=== PATIENT | female | born 1945 | race Caucasian/White ===

== ENCOUNTER 2020-04-07 15:12 | Outpatient (CLI) | payer MEDICARE, OTHER, SELFPAY ==
--- NOTE | 2020-04-07 15:17 | USCV_ITS ---
Erna Murphy Age: 74 Gender: F : 1945 Exam Date: 04/07/2020 15:39 Ordering Phys: Fatmata Oliver MD Technologist: MARYA VALLEJO Exam Location: [facility] [place] Indication: OCCLUSION AND STENOSIS OF LEFT CAROTID ARTERY Risk Factors: Previous Vascular Surgery: L CEA Right Brachial BP: / Left Brachial BP: / Right Left Velocity (cm/s) Spectral Plaque Velocity (cm/s) Spectral Plaque Syst/Diast Broadening Syst/Diast Broadening 64.70/ 13.70 Prox CCA 38.80 / 7.60 69.50/ 14.60 Mid CCA 32.80 / 10.40 48.50/ 9.70 Distal CCA 22.60 / 6.40 125.90/29.60 Prox ICA 98.60 / 26.60 112.30/27.20 Mid ICA 109.20/ 28.70 82.70/ 21.00 Distal ICA 102.50/ 24.30 127.60 ECA 103.40 1.62 ICA/CCA 3.33 Antegrade Vertebral Antegrade 49.90/ 5.30 cm/s 51.80/ 20.90 cm/s Bi Subclavian Bi 82.40 75.10 CONCLUSIONS Right ICA stenosis <50% at the upper end of the range. Moderate atheromatous plaque right carotid bulb/ICA. Left ICA stenosis <50%. Mild atheromatous plaque left carotid bulb/ICA. Normal antegrade Doppler flow noted in the right vertebral artery. Normal antegrade Doppler flow noted in the left vertebral artery. Estrada Rutledge MD (Electronically Signed) Final Date: 08 April 2020 11:14 S
== END 2020-04-07 15:13 | disposition home or self-care (01) ==
LOC: US 15:14
PROVIDERS: Family Provider Family Medicine; PCP Family Medicine; Visit Provider Family Medicine
DX: I65.23 Occlusion and stenosis of bilateral carotid arteries (principal)
CPT/HCPCS: 93880

== ENCOUNTER 2020-04-27 07:36 | Outpatient (CLI) | payer MEDICARE, OTHER, SELFPAY ==
--- NOTE | 2020-04-27 07:41 | MM_ITS ---
WS: [id number] BILATERAL DIGITAL SCREENING MAMMOGRAPHY WITH CAD CLINICAL INFORMATION: SCREENING HISTORY: Screening mammogram. No current complaints. COMPARISON: TECHNIQUE: Bilateral CC and MLO views. FINDINGS: Scattered fibroglandular densities bilaterally. No suspicious focal mass, asymmetry, calcifications, or architectural distortion. No evidence of malignancy. A few tiny punctate calcifications. MM/[place] [id number] IMPRESSION: BI-RADS: 2-Benign FOLLOW UP: 1 Year Follow-up Recommend return to annual screening mammography.
== END 2020-04-27 07:37 | disposition home or self-care (01) ==
LOC: RADSHAW 07:39
PROVIDERS: PCP Family Medicine; Visit Provider Family Medicine
DX: Z12.31 Encounter for screening mammogram for malignant neoplasm of breast (principal)
CPT/HCPCS: 77067

== ENCOUNTER 2020-09-30 08:32 | Outpatient (CLI) | payer MEDICARE, OTHER, SELFPAY ==
--- NOTE | 2020-09-30 08:38 | USCV_ITS ---
Erna Murphy Age: 75 Gender: F : 1945 Exam Date: 09/30/2020 08:43 Ordering Phys: Jorge Cody MD (Andy) ([email or web address] [place]) Technologist: Sheri Solitario Exam Location: [facility] [place] Indication: STENOSIS Risk Factors: Previous Vascular Surgery: Right Brachial BP: / Left Brachial BP: / Right Left Velocity (cm/s) Spectral Plaque Velocity (cm/s) Spectral Plaque Syst/Diast Broadening Syst/Diast Broadening 55.20/ 5.90 Prox CCA 47.10 / 6.40 44.70/ 9.90 Mid CCA 35.30 / 7.50 63.30/ 16.70 Distal CCA 38.40 / 9.00 98.75/ 25.10 Prox ICA 122.40/ 34.20 79.00/ 18.30 Mid ICA 101.70/ 27.50 87.70/ 20.20 Distal ICA 91.50 / 18.50 80.80 ECA 32.50 2.24 ICA/CCA 3.47 Antegrade Vertebral Antegrade 32.60/ 6.70 cm/s 59.50/ 17.60 cm/s Tri Subclavian Tri 87.90 124.6 0 FINDINGS Comparison:. 04/07/20. Mild elevation of systolic and diastolic velocities, bilateral. Scattered plaque with tortuosity of the arteries. Bilateral antegrade vertebral arteries. Ratios are elevated but ICA velocity is near normal. CONCLUSIONS Bilateral ICA stenosis near 50%. ICA/CCA ratios are elevated but systolic velocity is near normal. Dr. Astrid De León DO (Electronically Signed) Final Date: 01 October 2020 07:59 S
== END 2020-09-30 08:33 | disposition home or self-care (01) ==
LOC: RAD 08:36
PROVIDERS: PCP Family Medicine; Visit Provider Thoracic Surgery (Cardiothoracic Vascular Surgery)
DX: I65.23 Occlusion and stenosis of bilateral carotid arteries (principal)
CPT/HCPCS: 93880

== ENCOUNTER 2020-10-09 14:17 | Outpatient (CLI) | payer MEDICARE, OTHER, SELFPAY ==
--- NOTE | 2020-10-09 14:26 | XR_ITS ---
WS: [id number] DEXA (DUAL ENERGY X-RAY ABSORPTIOMETRY) Bone mineral density was performed using a BUX machine. HISTORY: AGE-RELATED OSTEOPOROSIS without CURRENT PATHOLOGICAL FRACTURE COMPARISON: 01/12/2018 Lumbar spine BMD (L1-L4): 0.864 g/cm2 T score: -2.6 Z score: -0.7 Total hip BMD: Left: 0.621 g/cm2. T score: -3.1 Z score: -1.2 Right: 0.641 g/cm2. T score: -2.9 Z score: -1.0 10 year probability of a major osteoporotic fracture is 37%. Compared to the prior study from 01/12/2018. Lumbar spine bone mineral density has increased by 0.2%. Bilateral hips bone mineral density has decreased by 2.6%. XR/XR DEXA axial skeleton* [id number] IMPRESSION: OSTEOPOROSIS based upon the WHO classification for females. Significant decreas e in bone mineral density within the hips since the prior study. No significant change in the lumbar spine.
== END 2020-10-09 14:18 | disposition home or self-care (01) ==
LOC: RADWPI 14:21
PROVIDERS: PCP Family Medicine; Visit Provider Family Medicine
DX: M81.0 Age-related osteoporosis without current pathological fracture (principal)
CPT/HCPCS: 77080

== ENCOUNTER → 2020-10-19 12:27 | Day surgery (SDC) | payer MEDICARE, OTHER, SELFPAY ==
[2020-10-19 13:04] VITALS: BP 140/81; PULSE 78; RESP 18; TEMP 36.4; O2SAT 96
[2020-10-19 13:14] LABS: Calcium 8.9 mg/dL (8.5-10.5)
[2020-10-19] MEDS: denosumab 60 mg SDV SUBCUT (13:15)
== END ==
PROVIDERS: PCP Family Medicine; Visit Provider Family Medicine
DX: M81.0 Age-related osteoporosis without current pathological fracture (principal)
CPT/HCPCS: 36415; 82310; 96372; J0897

== ENCOUNTER → 2021-04-12 10:41 | Day surgery (SDC) | payer MEDICARE, OTHER, SELFPAY ==
[2021-04-12 11:17] VITALS: BP 200/100; PULSE 80; RESP 18; TEMP 36.6; O2SAT 97
[2021-04-12 11:43] LABS: Calcium 9.1 mg/dL (8.5-10.5)
[2021-04-12] MEDS: denosumab 60 mg SDV SUBCUT (11:45)
== END ==
PROVIDERS: PCP Family Medicine; Visit Provider Family Medicine
DX: M81.0 Age-related osteoporosis without current pathological fracture (principal)
CPT/HCPCS: 36415; 82310; 96372; J0897

== ENCOUNTER 2021-04-30 12:36 | Outpatient (CLI) | payer MEDICARE, OTHER, SELFPAY ==
--- NOTE | 2021-04-30 12:45 | USCV_ITS ---
Erna Murphy Age: 75 Gender: F : 1945 Exam Date: 04/30/2021 13:19 Ordering Phys: Jorge Cody MD (Andy) ([email or web address] [place] Technologist: Nallely Tanner [place]am Location[place] [facility] [place] Indication: LCA RECHECK Risk Factors: History of CVA Previous Vascular Surgery: LCEA Right Brachial BP: / Left Brachial BP: / Right Left Velocity (cm/s) Spectral Plaque Velocity (cm/s) Spectral Plaque Syst/Diast Broadening Syst/Diast Broadening 66.40/ 18.50 Prox CCA 30.70 / 7.10 44.50/ 15.10 Hetro Mid CCA 27.80 / 7.90 49.20/ 11.60 Hetro Distal CCA 15.80 / 8.50 Hetro 111.00/22.90 Hetro Prox ICA 82.70 / 22.20 117.10/26.60 Hetro Mid ICA 74.10 / 12.40 87.80/ 14.90 Distal ICA 49.90 / 9.90 101.20 Hetro ECA 78.15 2.63 ICA/CCA 2.98 Antegrade Vertebral Antegrade 55.50/ 11.00 cm/s 26.70/ 11.60 cm/s Bi Subclavian Bi 62.00 108.0 0 FINDINGS Comparison:. 09/30/20 Continued elevation of ratios, bilateral. The systolic and diastolic velocities are not elevated. Mild tortuosity and plaque throughout. Antegrade vertebral arteries. CONCLUSIONS Continued elevation of ratios but not velocity of the carotid arteries. Bilateral ICA stenosis less than 50%. No progression stenosis or plaque. Consider CTA carotids to confirm no significant stenosis. Dr. Astrid De León DO (Electronically Signed) Final Date: 30 April 2021 14:11 S
== END 2021-04-30 12:37 | disposition home or self-care (01) ==
LOC: RAD 12:39
PROVIDERS: PCP Family Medicine; Visit Provider Thoracic Surgery (Cardiothoracic Vascular Surgery)
DX: I65.23 Occlusion and stenosis of bilateral carotid arteries (principal)
CPT/HCPCS: 93880

== ENCOUNTER → 2021-07-05 09:32 | Outpatient (BNVA) | payer MEDICARE, OTHER, SELFPAY | PROVIDERS: PCP Family Medicine; Visit Provider Surgery | DX: Z20.822 Contact with and (suspected) exposure to COVID-19 (principal); R19.4 Change in bowel habit | CPT/HCPCS: 87635 ==

== ENCOUNTER 2021-07-12 06:05 | Day surgery (SDC) | payer MEDICARE, OTHER, SELFPAY ==
[2021-07-07 14:43] VITALS: BMI 22.1
[2021-07-12 06:20] VITALS: BP 154/84; PULSE 89; RESP 18; TEMP 36.6; O2SAT 97
[2021-07-12] MEDS: sodium chloride 0.9% 1,000 ML 30 ML IV (06:45)
--- NOTE | 2021-07-12 06:52 | ANES.PREANE2 ---
Pre-Anesthetic Assessment Pre-Anesthetic Assessment: Height/Weight: Height 1.6 m Weight 56.699 kg Temp Pulse Resp BP Pulse Ox 97.8 F 89 18 154/84 97 07/12/21 06:20 07/12/21 06:20 07/12/21 06:20 07/12/21 06:20 07/12/21 06:20 Preop Diagnosis: screening colonoscopy Proposed Procedure: Operation Date: 07/12/21 07:00 Proposed Procedures p Colonoscopy 54502 r19.4(Not Applicable) - Isrrael Valverde MD Was Clonidine taken within 24 hours: N/A Last intake: Intake Last Liquid Date 07/11/21 Last Liquid Time 22:00 Last Solid Date 07/10/21 Last Solid Time 22:00 Social: Social History: No alcohol and No tobacco Exam: Pre-Anes Outpt Exam: alert, oriented x 3, clear to auscultation bilaterally and regular rate & rhythm Airway: Submandibular: WNL Cervical ROM: WNL MP: 2 Dentition: False History/ROS: No significant history except as noted and No significant complaints Pulmonary: Pulmonary: None reported CV/HEM: CV/HEM: PVD : : Chronic renal Insufficiency Hepatic: Hepatic: None reported GI: GI: None reported Metabolic: Metabolic: None reported Musc/skel: Musc/skel: OA/DJD Neuropsych: Neuropsych: CVA (Right side weaker than left) Anesthetic Plan: ASA status: 3 Anesthesia: Anesthesia Evaluation and MAC Risk of > 500 ml blood loss (7ml/kg in children): No Meds/Allergies Current Medications: Current Medications Generic Name Dose Route Start Last Admin Trade Name Freq PRN Reason Stop Dose Admin Sodium Chloride 1,000 mls @ 30 ml s/hr 07/12/21 06:15 07/12/21 06:45 Sodium Chloride 0.9% IV 07/13/21 06:14 30 mls/hr .Q24H DIONY Administration PFSH Anesthesia PFSH: Medical History Acute hypotension Age related osteoporosis Anemia Bronchiolitis Carotid stenosis Chronic kidney disease CVA (cerebral vascular accident) Hypertension Hypertriglyceridemia Surgical History Hx of cataract surgery S/P carotid endarterectomy Status post right breast lumpectomy Family History Other Hypertension Social History Smoking and tobacco status: former smoker Data Anesthesia Cardiac Studies: No Data to Display
--- NOTE | 2021-07-12 06:55 | W.PM.OPSUD ---
Surgery/Procedure H&P Update DATE OF PROCEDURE: July 12, 2021 DATE H&P PERFORMED: 06/15/21 H&P UPDATE INFORMATION: I have reviewed H&P completed within last 30 days, I have examined patient prior to procedure and No changes to prior documentation PREOP DIAGNOSIS: screening colonoscopy PLANNED PROCEDURE: Operation Date: 07/12/21 07:00 Proposed Procedures p Colonoscopy 82917 r19.4(Not Applicable) - Isrrael Valverde MD
[2021-07-12 07:22] VITALS: BP 120/58; PULSE 62; RESP 16; TEMP 36.4; O2SAT 93
[2021-07-12 07:29] VITALS: BP 154/96; PULSE 63; RESP 18; O2SAT 96
--- NOTE | 2021-07-12 15:54 | ANE.PACU2 ---
Inpatient post-anesthesia follow up: Airway intact: Yes Vital signs: Temperature 97.5 F Pulse Rate 63 Respiratory Rate 18 Blood Pressure 154/96 Pulse Oximetry 96 Oxygen Delivery Me thod Room Air Oxygen Flow Rate 4 Fraction of Inspir ed Oxygen Hydration adequate: Yes Nausea and vomiting: No Pain level: 1 Mental status: Baseline
== END 2021-07-12 07:42 | disposition home or self-care (01) ==
PROVIDERS: PCP Family Medicine; Visit Provider Surgery
PROC: 0DJD8ZZ Inspection of Lower Intestinal Tract, Via Natural or Artificial Opening Endoscopic (ICD-10-PCS; CPT 45378; principal; 2021-07-12 07:00)
DX: R19.4 Change in bowel habit (principal); K57.30 Diverticulosis of large intestine without perforation or abscess without bleeding; D12.4 Benign neoplasm of descending colon; M19.90 Unspecified osteoarthritis, unspecified site; Z86.73 Personal history of transient ischemic attack (TIA), and cerebral infarction without residual deficits; I10 Essential (primary) hypertension; Z87.891 Personal history of nicotine dependence
CPT/HCPCS: 45380; 88305; 96360; J2704; J7030

== ENCOUNTER → 2021-10-13 11:14 | Day surgery (SDC) | payer MEDICARE, OTHER, SELFPAY ==
[2021-10-13 11:28] VITALS: BP 187/93; PULSE 86; RESP 18; TEMP 35.9; O2SAT 97
[2021-10-13] MEDS: denosumab 60 mg SDV SUBCUT (11:36)
== END ==
PROVIDERS: PCP Family Medicine; Visit Provider Family Medicine
DX: M81.0 Age-related osteoporosis without current pathological fracture (principal)
CPT/HCPCS: 96372; J0897

== ENCOUNTER → 2022-04-12 10:29 | Day surgery (SDC) | payer MEDICARE, OTHER, SELFPAY ==
[2022-04-12 10:30] VITALS: BP 153/116; PULSE 71; RESP 18; TEMP 36.7; O2SAT 97
--- NOTE | 2022-04-12 10:30 | PC.NURSE ---
Pt brought lab from Dr. Oliver's office. Calcium level noted at 9.0 on 03/18/22. Prolia injection given as ordered.
[2022-04-12] MEDS: denosumab 60 mg SDV SUBCUT (10:42)
== END ==
PROVIDERS: PCP Family Medicine; Visit Provider Family Medicine
DX: M81.0 Age-related osteoporosis without current pathological fracture (principal)
CPT/HCPCS: 96372; J0897

== ENCOUNTER 2022-06-20 11:46 | Outpatient (CLI) | payer MEDICARE, OTHER, SELFPAY ==
--- NOTE | 2022-06-20 13:00 | USCV_ITS ---
Erna Murphy Age: 76 Gender: F : 1945 Exam Date: 06/20/2022 12:07 Ordering Phys: Jorge Cody MD (Andy) [email or web address] [place] Technologist: HARI Exam Location: [facility] [place] Indication: S/P LEFT CEA 2017, 1 YEAR F/U Risk Factors: Previous Vascular Surgery: Right Brachial BP: / Left Brachial BP: / Right Left Velocity (cm/s) Spectral Plaque Velocity (cm/s) Spectral Plaque Syst/Diast Broadening Syst/Diast Broadening 55.20/ 11.70 Prox CCA 38.50 / 8.50 54.40/ 13.20 Mid CCA 48.70 / 11.10 38.80/ 9.20 Distal CCA 40.20 / 13.70 108.80/24.90 Prox ICA 23.20 / 9.70 90.80/ 14.80 Mid ICA 68.40 / 17.10 58.50/ 7.30 Distal ICA 46.80 / 12.30 128.10 ECA 92.60 1.97 ICA/CCA 1.40 Antegrade Vertebral Antegrade 52.10/ 11.10 cm/s 56.30/ 13.80 cm/s Tri Subclavian Tri 84.30 42.00 FINDINGS Comparison:. 04/30/21 Diffuse bilateral scattered calcified plaque throughout the common carotid arteries and extending through the bifurcation. Parvus tardus waveform left CCA. Velocity of left common carotid artery is low. No high grade stenosis. Antegrade vertebral arteries. CONCLUSIONS Bilateral ICA stenosis less than 50%. Left common carotid parvus tardus waveform, may indicate a proximal stenosis at the origin from the aorta. Consider CTA carotid arteries. Dr. Astrid De León DO (Electronically Signed) Final Date: 20 June 2022 14:48 S
== END 2022-06-20 11:47 | disposition home or self-care (01) ==
PROVIDERS: PCP Family Medicine; Visit Provider Thoracic Surgery (Cardiothoracic Vascular Surgery)
DX: I65.23 Occlusion and stenosis of bilateral carotid arteries (principal)
CPT/HCPCS: 93880

== ENCOUNTER → 2022-07-07 08:47 | Outpatient (BNVA) | payer MEDICARE, OTHER, SELFPAY | PROVIDERS: PCP Family Medicine; Visit Provider Thoracic Surgery (Cardiothoracic Vascular Surgery) | DX: I65.29 Occlusion and stenosis of unspecified carotid artery (principal) | CPT/HCPCS: 99212 ==

== ENCOUNTER → 2022-10-13 09:43 | Day surgery (SDC) | payer MEDICARE, OTHER, SELFPAY ==
[2022-10-13 10:18] VITALS: BP 200/100; PULSE 83; RESP 18; TEMP 36.2; O2SAT 95
[2022-10-13] MEDS: denosumab 60 mg SDV SUBCUT (10:35)
== END ==
PROVIDERS: PCP Family Medicine; Visit Provider Family Medicine
DX: M81.0 Age-related osteoporosis without current pathological fracture (principal)
CPT/HCPCS: 36415; 82310; 96372; J0897

== ENCOUNTER 2022-11-08 12:21 | Outpatient (CLI) | payer MEDICARE, OTHER, SELFPAY ==
--- NOTE | 2022-11-08 12:31 | XR_ITS ---
WS: [id number] DEXA (DUAL ENERGY X-RAY ABSORPTIOMETRY) Bone mineral density was performed using a [employer] machine. HISTORY: AGE RELATED OSTEOPOROSIS W/O PATHOLOGICAL FX COMPARISON: 10/09/2020 Lumbar spine BMD (L1-L4): 0.919 g/cm2 T score: -2.2 Z score: -0.2 Total hip BMD: Left: 0.679 g/cm2. T score: -2.6 Z score: -0.6 Right: 0.695 g/cm2. T score: -2.5 Z score: -0.5 10 year probability of a major osteoporotic fracture is 41.6%. Compared to the prior study from 10/09/2020. Lumbar spine bone mineral density has increased by 6.4%. Bilateral hips bone mineral density has increased by 8.9%. XR/XR DEXA axial skeleton* [id number] IMPRESSION: OSTEOPENIA based upon the WHO classification for females. Significant increase in bone mineral density within the lumbar spine and hips s ida the prior study.
== END 2022-11-08 12:22 | disposition home or self-care (01) ==
LOC: RAD 12:21
PROVIDERS: PCP Family Medicine; Visit Provider Family Medicine
DX: M81.0 Age-related osteoporosis without current pathological fracture (principal); M85.80 Other specified disorders of bone density and structure, unspecified site
CPT/HCPCS: 77080

== ENCOUNTER 2022-12-13 11:39 | Outpatient (CLI) | payer MEDICARE, OTHER, SELFPAY ==
--- NOTE | 2022-12-13 11:52 | US_ITS ---
WS: [id number] RENAL ULTRASOUND REASON FOR EXAM: STAGE 3B CHRONIC KIDNEY DZ COMPARISON: None available. ORDER DATE: 12/13/2022 11:54 AM TECHNIQUE: Grayscale and Doppler ultrasound examination of the kidneys. FINDINGS: Right kidney: Right kidney measures 11.0 cm x 5.1 cm x 5.4 cm. Cortical width 19 mm Left kidney: Left kidney measures 8.4 cm x 4.7 cm x 4.8 cm. Cortical width 7.5 mm with a very echoge demetrio renal cortex Duplex imaging demonstrates reduced vascular flow in the left kidney compared with the right No evidence of hydronephrosis Partially distended urinary bladder unremarkable. US/US renal BI* [id number] IMPRESSION: Marked left renal atrophy with increased echogenicity consistent with chronic p arenchymal changes.
== END 2022-12-13 11:40 | disposition home or self-care (01) ==
LOC: RAD 11:42
PROVIDERS: PCP Family Medicine; Visit Provider Internal Medicine Nephrology
DX: N18.32 Chronic kidney disease, stage 3b (principal); N26.1 Atrophy of kidney (terminal)
CPT/HCPCS: 76770

== ENCOUNTER 2023-02-10 02:14 | Emergency (ER) | payer MEDICARE, OTHER, SELFPAY ==
[2023-02-10 02:25] VITALS: BP 184/93; PULSE 77; RESP 22; O2SAT 93; BMI 24.5
--- NOTE | 2023-02-10 02:29 | XRR_ITS ---
PROCEDURE INFORMATION: Exam: XR Chest Exam date and time: 02/10/2023 2:33 AM Age: 77 years old Clinical indication: Prior surgery; Surgery date: 6+ months; Surgery type: Lumpectomy. Carotid endarterectomy; Patient HX: C/O cough x 3 days TECHNIQUE: Imaging protocol: Radiologic exam of the chest. Views: 1 view. COMPARISON: CR XR chest 1V [id number] 08/29/2019 9:22 PM FINDINGS: Lungs: There are low lung volumes. Otherwise, the lungs are clear. Pleural spaces: Unremarkable. No pleural effusion. No pneumothorax. Heart/Mediastinum: Calcified lymph nodes are present, secondary to prior granulomatous disease. Bones/joints: Unremarkable. XR/XR chest 1V portable [id number] IMPRESSION: There are low lung volumes. Otherwise, the lungs are clear.
--- NOTE | 2023-02-10 02:32 | W.ED.URI ---
HPI - URI/Sore Throat General: Chief Complaint: Upper Respiratory Infection Stated Complaint: n/v, cough x 3 days Time Seen by Provider: 02/10/23 02:16 Source: patient Mode of arrival: ambulatory Limitations: no limitations History of Present Illness: 69-year-old female states she has had a cough for the last 5 days. States she has had some congestion as well. States the cough is worsening states she is coughed so hard a couple times she has vomited she denies any nausea denies any chest pain she has felt feverish but has not taken her temp at home. She denies any worsening proving factors she is in no distress here. Associated symptoms: Reports vomiting; Deny abdominal pain, chills, chest pain, diarrhea, fever(s), headache(s) or nausea Review of Systems Const: Reports: body aches; Denies: fever(s) or chills Eyes: Denies: eye discomfort ENMT: Denies: throat pain or dental pain Card: Denies: chest pain Resp: Reports: productive cough; Denies: dyspnea GI: Reports: vomiting; Denies: abdominal pain, nausea or diarrhea : Denies: dysuria Musc: Denies: neck pain or back pain Skin/Breast: Denies: rash Neuro: Denies: headache(s) PFSH ED PFSH: Medical History Acute hypotension Age related osteoporosis Anemia Bronchiolitis Carotid stenosis Chronic kidney disease CVA (cerebral vascular accident) Hypertension Hypertriglyceridemia Surgical History Hx of cataract surgery S/P carotid endarterectomy Status post colonoscopy (07/12/21) Status post right breast lumpectomy Family History Other Hypertension Social History Smoking and tobacco status: former smoker Physical Exam Const: COMMON NORMALS: no acute distress, patient oriented x3 and healthy appearing HENMT: COMMON NORMALS: normocephalic and atraumatic HEAD & SCALP: normocephalic and atraumatic THROAT: posterior oropharynx normal Eye: COMMON NORMALS: conjunctivae normal CONJUNCTIVA: Yes conjunctivae normal Neck/C-Spine: COMMON NORMALS: full ROM and supple Chest: COMMONS NORMALS: normal inspection of the chest and normal palpation of entire chest wall Resp: COMMON NORMALS: normal respiratory effort, No retractions, No use of accessory muscles and clear to auscultation bilaterally AUSCULTATION: clear to auscultation bilaterally Cardio: COMMON NORMALS: regular rate, regular rhythm and No murmurs present (Cardio) RATE: regular rate RHYTHM: regular rhythm GI: COMMON NORMALS: Normal to inspection, nondistended, normoactive bowel sounds present, Soft to palpation, non-tender and no masses PALPATION: Yes Soft to palpation Extremity: COMMON NORMALS: normal to inspection and full ROM Neuro: COMMON NORMALS: patient oriented x3, moves all extremities and no focal motor deficits Psych: COMMON NORMALS: mental status grossly normal, Normal thought process present and cooperative THOUGHT PROCESS: Normal thought process present Skin: COMMON NORMALS: no rashes or lesions noted and no wounds GENERAL SKIN EXAM: no rashes or lesions noted Course Vital Signs: Vital signs: Vital Signs Temperature 98.0 F 02/10/23 03:24 Pulse Rate 78 02/10/23 03:24 Respiratory Rate 16 02/10/23 03:24 Blood Pressure 184/93 02/10/23 03:24 Pulse Oximetry 93 02/10/23 03:24 Oxygen Delivery Me thod Room Air 02/10/23 02:25 MDM - URI/Sore Throat Medical Decision Making Patient presents here with cough congestion x-ray shows a possible left lower lobe pneumonia she has had green productive sputum patient is stable for discharge we will start her on doxycycline she is stable for discharge she is to follow-up with PCP and return if worsening. Medical Records I reviewed the patient's medical records. Lab Data I reviewed the patient's lab results. 02/10/23 02:48 02/10/23 02:48 Laboratory Results WBC 14.3 10^3/uL (4.0-10.0) H 02/10/23 02:48 RBC 4.64 10^6/uL (4.1-5.3) 02/10/23 02:48 Hgb 13.6 g/dL (11.5-15.3) 02/10/23 02:48 Hct 42.5 % (37.0-47.0) 02/10/23 02:48 MCV 91.6 fl (81-99) 02/10/23 02:48 MCH 29.3 pg (28.0-34.0) 02/10/23 02:48 MCHC 32.0 g/dL (30.0-36.0) 02/10/23 02:48 RDW 13.0 % (12.1-15.1) 02/10/23 02:48 Plt Count 334 10^3/cmm (130-400) 02/10/23 02:48 MPV 9.8 fL (7.4-10.4) 02/10/23 02:48 Neut % (Auto) 77.5 % 02/10/23 02:48 Lymph % (Auto) 10.0 % 02/10/23 02:48 Huron % (Auto) 10.4 % 02/10/23 02:48 Eos % (Auto) 1.2 % 02/10/23 02:48 Baso % (Auto) 0.3 % 02/10/23 02:48 Neut # (Auto) 11.11 10^3/uL (1.8-7.7) H 02/10/23 02:48 Lymph # (Auto) 1.4 10^3/uL (0.8-4.8) 02/10/23 02:48 Huron # (Auto) 1.5 10^3/uL (0.2-0.9) H 02/10/23 02:48 Eos # (Auto) 0.2 10^3/uL (0.0-0.8) 02/10/23 02:48 Baso # (Auto) 0.1 10^3/uL (0.0-0.1) 02/10/23 02:48 Nucleated RBC % (auto) 0 % 02/10/23 02:48 Nucleated RBCs # 0.0 /100WBC 02/10/23 02:48 Sodium 137 mmol/L (136-145) 02/10/23 02:48 Potassium 3.9 mmol/L (3.5-5.1) 02/10/23 02:48 Chloride 101 mmol/L (98-107) 02/10/23 02:48 Carbon Dioxide 22 mmol/L (22-29) 02/10/23 02:48 Anion Gap 17.9 (5-19) 02/10/23 02:48 BUN 19 mg/dL (8-23) 02/10/23 02:48 Creatinine 1.7 mg/dL (0.5-0.9) H 02/10/23 02:48 GFR Calculation Not Reportable 02/10/23 02:48 Glucose 123 mg/dL (65-115) H 02/10/23 02:48 Calculated Osmolality 288 mOsm/kg (285-295) 02/10/23 02:48 Calcium 9.2 mg/dL (8.5-10.5) 02/10/23 02:48 Total Bilirubin 0.4 mg/dL (0.15-1.2) 02/10/23 02:48 AST 14 U/L (0-32) 02/10/23 02:48 ALT 9 U/L (0-33) 02/10/23 02:48 Alkaline Phosphatase 61 U/L (35-105) 02/10/23 02:48 Total Protein 7.8 g/dL (6.6-8.7) 02/10/23 02:48 Albumin 4.2 g/dL (3.5-5.2) 02/10/23 02:48 Globulin 3.6 g/dL (1.3-4.6) 02/10/23 02:48 SARS-CoV-2 Ag (Rapid) negative 02/10/23 02:58 Imaging Data CXR: I personally reviewed and interpreted this imaging study as follows: My impression: likely LLL pneumonia Discharge Plan Discharge Patient Disposition: Home Clinical Impression: Pneumonia Condition: Stable Prescriptions: New doxycycline hyclate 100 mg tablet 100 mg PO BID 7 Days Qty: 14 0RF No Action zolpidem [Ambien] 5 mg tablet 5 mg PO PRN PRN (Reason: Sleep) aspirin 325 mg tablet 325 mg PO DAILY simvastatin 40 mg tablet 40 mg PO DAILY amlodipine 5 mg tablet 5 mg PO DAILY Prolia 60 mg/mL Syringe See Rx Instructions .ROUTE .COMPLEX Rx Instructions: 60 mg subcutaneously every 6 months Discharge Orders: Discharge ED (Routine); Ordered 02/10/23 Ordered By: Sabas Roberts Referrals: Fatmata Oliver MD [Primary Care Provider] - 1-3 days Discharge Diet: Advance as tolerated Discharge Activity: Resume usual activity Patient Instructions: Pneumonia (ED) Coding Level of Care Code ED [employer] Captain for Chg Dereje
[2023-02-10 02:56] LABS: Basophils # 0.1 10^3/uL (0.0-0.1); Basophils % 0.3 %; Eosinophils # 0.2 10^3/uL (0.0-0.8); Eosinophils % 1.2 %; Hematocrit 42.5 % (37.0-47.0); Hemoglobin 13.6 g/dL (11.5-15.3); Lymphocytes # 1.4 10^3/uL (0.8-4.8); Mean Corpuscular Hemoglobin 29.3 pg (28.0-34.0); Mean Corpuscular Volume 91.6 fl (81-99); Mean Platelet Volume 9.8 fL (7.4-10.4); Monocytes # 1.5 10^3/uL (0.2-0.9); Monocytes % 10.4 %; Neutrophils # 11.11 10^3/uL (1.8-7.7); Neutrophils % 77.5 %; Nucleated Red Blood Cells % 0 %; Platelet Count 334 10^3/cmm (130-400); Red Blood Count 4.64 10^6/uL (4.1-5.3); White Blood Count 14.3 10^3/uL (4.0-10.0)
[2023-02-10 03:09] LABS: Alanine Aminotransferase 9 U/L (0-33); Albumin Level 4.2 g/dL (3.5-5.2); Alkaline Phosphatase 61 U/L (35-105); Anion Gap 17.9 (5-19); Aspartate Amino Transferase 14 U/L (0-32); Blood Urea Nitrogen 19 mg/dL (8-23); Calcium 9.2 mg/dL (8.5-10.5); Carbon Dioxide 22 mmol/L (22-29); Chloride 101 mmol/L (98-107); Globulin 3.6 g/dL (1.3-4.6); Glucose 123 mg/dL (65-115); Osmolality Calculated 288 mOsm/kg (285-295); Potassium 3.9 mmol/L (3.5-5.1); Sodium 137 mmol/L (136-145); Total Bilirubin 0.4 mg/dL (0.15-1.2); Total Protein 7.8 g/dL (6.6-8.7)
[2023-02-10 03:20] LABS: SARS Covid-2 Antigen negative
[2023-02-10 03:24] VITALS: BP 184/93; PULSE 78; RESP 16; TEMP 36.7; O2SAT 93
[2023-02-10 03:34] VITALS: BP 184/93; PULSE 77; RESP 16; O2SAT 95
[2023-02-10] MEDS: doxycycline 100 mg Tablet PO (03:36)
[2023-02-10 03:41] VITALS: BP 184/93; PULSE 77; RESP 16; TEMP 36.7; O2SAT 95
== END 2023-02-10 03:42 | disposition home or self-care (01) ==
PROVIDERS: Emergency Provider Emergency Medicine; PCP Family Medicine
DX: J18.9 Pneumonia, unspecified organism (principal); Z79.82 Long term (current) use of aspirin; Z20.822 Contact with and (suspected) exposure to COVID-19; Z87.891 Personal history of nicotine dependence; I12.9 Hypertensive chronic kidney disease with stage 1 through stage 4 chronic kidney disease, or unspecified chronic kidney disease; N18.9 Chronic kidney disease, unspecified; Z86.73 Personal history of transient ischemic attack (TIA), and cerebral infarction without residual deficits
CPT/HCPCS: 71045; 80053; 85025; 87426; 99284

== ENCOUNTER → 2023-03-21 08:43 | Outpatient (BNVA) | payer MEDICARE, OTHER, SELFPAY | PROVIDERS: PCP Family Medicine; Visit Provider Podiatrist Foot & Ankle Surgery | DX: I73.9 Peripheral vascular disease, unspecified (principal); L60.3 Nail dystrophy; Q82.8 Other specified congenital malformations of skin | CPT/HCPCS: 11721; 17110; 99204 ==

== ENCOUNTER → 2023-05-23 08:22 | Outpatient (BNVA) | payer MEDICARE, OTHER, SELFPAY | PROVIDERS: PCP Family Medicine; Visit Provider Podiatrist Foot & Ankle Surgery | DX: L60.3 Nail dystrophy (principal); I73.9 Peripheral vascular disease, unspecified; Q82.8 Other specified congenital malformations of skin | CPT/HCPCS: 11721; 17110 ==

== ENCOUNTER 2023-05-25 14:29 | Oncology outpatient (recurring) (ONCR) | payer MEDICARE, OTHER, SELFPAY ==
[2023-05-25 15:07] VITALS: BP 156/86; PULSE 81; RESP 18; TEMP 36.4; O2SAT 97
[2023-05-25 15:12] VITALS: BP 114/74; PULSE 78; RESP 18; TEMP 36.6; O2SAT 98
[2023-05-25] MEDS: denosumab 60 mg SDV SUBCUT (15:12)
== END 2023-05-25 23:59 | disposition home or self-care (01) ==
LOC: ONCMED 14:31
PROVIDERS: PCP Family Medicine; Visit Provider Family Medicine
DX: M81.0 Age-related osteoporosis without current pathological fracture (principal)
CPT/HCPCS: 96401; J0897

== ENCOUNTER 2023-06-30 11:34 | Outpatient (CLI) | payer MEDICARE, OTHER, SELFPAY ==
--- NOTE | 2023-06-30 12:00 | USCV_ITS ---
Erna Murphy Age: 77 Gender: F : 1945 Exam Date: 06/30/2023 11:45 Ordering Phys: Jorge Cody MD (Andy) ([email or web address] [place]) Technologist: CT Exam Location: [facility] [place] Indication: Risk Factors: Previous Vascular Surgery: Right Brachial BP: / Left Brachial BP: / Right Left Velocity (cm/s) Spectral Plaque Velocity (cm/s) Spectral Plaque Syst/Diast Broadening Syst/Diast Broadening 38.80/ 6.70 Prox CCA 38.00 / 9.70 58.50/ 12.50 Mid CCA 57.90 / 9.70 47.30/ 11.20 Distal CCA 45.10 / 11.30 109.90/24.70 Prox ICA 69.90 / 15.20 86.70/ 15.80 Mid ICA 53.40 / 15.20 62.30/ 10.80 Distal ICA 48.90 / 17.10 112.30 ECA 56.40 1.88 ICA/CCA 1.21 Antegrade Vertebral Antegrade 52.00/ 9.30 cm/s 58.70/ 13.20 cm/s Bi Subclavian Bi 143.6 102.5 0 0 FINDINGS previous left cea, no stenosis CONCLUSIONS Right ICA stenosis <50%. Severe calcified atheromatous plaque right carotid bulb/ICA/ECA Left ICA stenosis <50%. Prior Left CEA. Intimal thickening in the common carotid arteries and internal carotid arteries bilaterally. Normal antegrade Doppler flow noted in the right vertebral artery. Normal antegrade Doppler flow noted in the left vertebral artery. Estrada Rutledge MD (Electronically Signed) Final Date: 02 July 2023 12:54 S
== END 2023-06-30 11:35 | disposition home or self-care (01) ==
PROVIDERS: PCP Family Medicine; Visit Provider Thoracic Surgery (Cardiothoracic Vascular Surgery)
DX: I65.23 Occlusion and stenosis of bilateral carotid arteries (principal)
CPT/HCPCS: 93880

== ENCOUNTER → 2023-07-13 08:36 | Outpatient (BNVA) | payer MEDICARE, OTHER, SELFPAY | PROVIDERS: PCP Family Medicine; Visit Provider Thoracic Surgery (Cardiothoracic Vascular Surgery) | DX: I65.29 Occlusion and stenosis of unspecified carotid artery (principal); I12.9 Hypertensive chronic kidney disease with stage 1 through stage 4 chronic kidney disease, or unspecified chronic kidney disease; N18.9 Chronic kidney disease, unspecified; Z87.891 Personal history of nicotine dependence | CPT/HCPCS: 99213 ==

== ENCOUNTER → 2023-08-29 08:12 | Outpatient (BNVA) | payer MEDICARE, OTHER, SELFPAY | PROVIDERS: PCP Family Medicine; Visit Provider Podiatrist Foot & Ankle Surgery | DX: L60.3 Nail dystrophy (principal); I73.9 Peripheral vascular disease, unspecified | CPT/HCPCS: 11721 ==

== ENCOUNTER → 2023-12-20 10:37 | Outpatient (BNVA) | payer MEDICARE, OTHER, SELFPAY | PROVIDERS: PCP Family Medicine; Visit Provider Podiatrist Foot & Ankle Surgery | DX: L60.8 Other nail disorders (principal); L60.3 Nail dystrophy; I73.9 Peripheral vascular disease, unspecified | CPT/HCPCS: 11721 ==

== ENCOUNTER 2024-01-19 07:59 | Oncology outpatient (recurring) (ONCR) | payer MEDICARE, OTHER, SELFPAY ==
[2024-01-19] MEDS: denosumab 60 mg SDV SUBCUT (08:17)
[2024-01-19 08:19] VITALS: BP 148/81; PULSE 82; RESP 16; TEMP 36.4; O2SAT 95
== END 2024-01-23 23:59 | disposition home or self-care (01) ==
LOC: ONCMED 08:01
PROVIDERS: PCP Family Medicine; Visit Provider Family Medicine
DX: M81.0 Age-related osteoporosis without current pathological fracture (principal); Z79.899 Other long term (current) drug therapy
CPT/HCPCS: 96372; J0897

== ENCOUNTER → 2024-03-26 10:13 | Outpatient (BNVA) | payer MEDICARE, OTHER, SELFPAY | PROVIDERS: PCP Family Medicine; Visit Provider Podiatrist Foot & Ankle Surgery | DX: L60.8 Other nail disorders (principal); L60.3 Nail dystrophy; I73.9 Peripheral vascular disease, unspecified | CPT/HCPCS: 11721 ==

== ENCOUNTER → 2024-05-23 10:27 | Outpatient (BNVA) | payer MEDICARE, OTHER, SELFPAY | PROVIDERS: PCP Family Medicine; Visit Provider Internal Medicine Cardiovascular Disease | DX: G45.9 Transient cerebral ischemic attack, unspecified (principal); I49.1 Atrial premature depolarization; I49.3 Ventricular premature depolarization; I47.19 Other supraventricular tachycardia | CPT/HCPCS: 93246 ==

== ENCOUNTER 2024-06-10 10:30 | Outpatient (CLI) | payer MEDICARE, OTHER, SELFPAY ==
--- NOTE | 2024-06-10 10:35 | USCV_ITS ---
Erna Murphy Age: 78 Gender: F : 1945 Exam Date: 06/10/2024 10:55 Ordering Phys: Fatmata Oliver MD Technologist: USR [place] [facility] [place]: Stenosis Risk Factors: Previous Vascular Surgery: Right Brachial BP: / Left Brachial BP: / Right Left Velocity (cm/s) Spectral Plaque Velocity (cm/s) Spectral Plaque Syst/Diast Broadening Syst/Diast Broadening 60.10/ 11.00 Prox CCA 36.50 / 7.60 65.90/ 13.30 Mid CCA 41.20 / 9.30 47.50/ 11.30 Distal CCA 17.80 / 0.00 130.60/32.50 Prox ICA 55.70 / 14.10 99.60/ 12.90 Mid ICA 42.50 / 11.00 125.50/14.50 Distal ICA 37.90 / 9.60 131.50 ECA 45.40 2.70 ICA/CCA 3.10 Antegrade Vertebral Antegrade 48.70/ 9.00 cm/s 57.10/ 18.40 cm/s Tri Subclavian Bi 56.10 115.2 0 FINDINGS Comparison:. 06/30/23 Diffuse bilateral scattered calcified plaque and intimal thickening throughout the common carotid arteries and extending through the bifurcation. Mild elevation of systolic velocities. Antegrade vertebral arteries. CONCLUSIONS Bilateral ICA stenosis less than 50%. Mild diffuse carotid atherosclerosis. Dr. Astrid De León DO (Electronically Signed) Final Date: 10 June 2024 13:29 S
--- NOTE | 2024-06-10 10:35 | CT_ITS ---
WS: [id number] CT HEAD NONCONTRAST HISTORY: DYSPNEA ON EXERTION TECHNIQUE: Contiguous axial imaging performed through the brain in 2.5 mm imaging. Bone and soft tiss ue windows. Sagittal and coronal reformats reviewed. All CT scans at [facility] use at least one of these dose optimization techniques: automated exposure control; mA and/or kV adjustment per pa tient size (includes targeted exams where dose is matched to clinical indication); or iterative recon struction. DLP: 983.74 mGy.cm COMPARISON: 10/26/2016 No acute intracranial hemorrhage, midline shift or mass effect. Significant progression of atrophy and small vessel ischemic disease and infarct since 10/26/2016. Mode rate cerebellar atrophy. Prior infarct towards the RIGHT frontal vertex. Ventricles: Normal size with no hydrocephalus. No inferior displacement of the cerebellar tonsils. Paranasal sinuses: As visualized are clear. Mastoid air cells: Well pneumatized. Calvarium and scalp: Skull is intact with no soft tissue edema or swelling. Extensive heavy calcification in the distal vertebral and intracranial carotid arteries. CT/CT head wo con* [id number] IMPRESSION: 1. No acute intracranial hemorrhage or edema. 2. Significant progression of atrophy with small vessel ischemic disease and i nfarcts since 2017. 3. Nonacute infarct RIGHT frontal vertex.
--- NOTE | 2024-06-10 10:35 | USCV_ITS ---
Erna Murphy Age: 78 Gender: F : 1945 Exam Date: 06/10/2024 12:34 Ordering Phys: Fatmata Oliver MD Technologist: Exam Location: [facility] Indication: cp sob BP: 125 / 70 HR: 84 Rhythm: Sinus Technical Quality: Adequate MEASUREMENTS (Male / Female) Normal Values 2D ECHO LV Diastolic Diameter PLAX 4.4 cm 4.2 - 5.9 / 3.9 - 5.3 cm IVS Diastolic Thickness 1.2 cm 0.6 - 1.0 / 0.6 - 0.9 cm IVS Systolic Thickness 1.9 cm LVPW Diastolic Thickness 1.5 cm 0.6 - 1.0 / 0.6 - 0.9 cm LVPW Systolic Thickness 2.0 cm LVOT Diameter 2.0 cm LV Ejection Fraction 2D Teich 66.1 % LV Ejection Fraction MOD 4C 63.1 % LV Ejection Fraction MOD 2C 53.8 % LV Ejection Fraction 2C AL 54.5 % LA Diameter 3.4 cm RA Systolic Volume 4C AL 28.5 ml RA Systolic Volume 4C MOD 27.4 ml Aorta at Sinotubular Diameter 3.0 cm IVC Diameter 1.9 cm M-MODE LA Ao Ratio MM 1.2 AV Cusp Separation MM 2.2 cm DOPPLER AV Peak Velocity 122.3 cm/s LVOT Peak Velocity 96.0 cm/s AV Area Cont Eq vti 3.0 cm squared AV Area Cont Eq pk 2.4 cm squared MV Peak Velocity 130.0 cm/s MV Area PHT 2.2 cm squared Mitral E to A Ratio 0.5 TV Peak Velocity 143.0 cm/s TR Peak Velocity 155.0 cm/s TR Peak Gradient 9.6 mmHg TV Peak E Velocity 96.0 cm/s Right Atrial Pressure 3.0 mmHg Pulmonary Artery Systolic Pressu 12.6 mmHg PV Peak Velocity 129.7 cm/s FINDINGS Left Ventricle Normal left ventricular size and systolic function, EF 55% .no regional wall motion abnormalities. Grade I/IV diastolic dysfunction (abnormal relaxation filling pattern), normal to mildly elevated filling pressures. Right Ventricle The right ventricle is normal in size and function. Right Atrium The right atrium is normal in size. Left Atrium The left atrium is normal in size. Mitral Valve Trace mitral valve regurgitation. Aortic Valve No gross abnormalities noted Tricuspid Valve No gross abnormalities noted Pulmonic Valve No gross abnormalities noted Pericardium Normal pericardium without effusion. Aorta Normal ascending aorta dimension. IVC Inferior vena cava not visualized. CONCLUSIONS Normal left ventricular size and systolic function, EF 55% .no regional wall motion abnormalities. Grade I/IV diastolic dysfunction (abnormal relaxation filling pattern), normal to mildly elevated filling pressures. Trace mitral valve regurgitation. There is no pericardial effusion. There are no intracardiac masses. No similar previous studies are available for comparison Dr Wilson Gan MD FACC (Electronically Signed) Final Date: 10 June 2024 15:47 S
== END 2024-06-10 10:31 | disposition home or self-care (01) ==
LOC: RAD 10:30
PROVIDERS: PCP Family Medicine; Visit Provider Family Medicine
DX: G45.9 Transient cerebral ischemic attack, unspecified (principal); E78.1 Pure hyperglyceridemia; I63.9 Cerebral infarction, unspecified; G31.9 Degenerative disease of nervous system, unspecified; I67.2 Cerebral atherosclerosis; I50.30 Unspecified diastolic (congestive) heart failure
CPT/HCPCS: 70450; 93306; 93880

== ENCOUNTER 2024-06-26 08:28 | Outpatient (CLI) | payer MEDICARE, OTHER, SELFPAY ==
--- NOTE | 2024-06-26 | ECG_ITS ---
[facility] Test Date: 2024-06-26 Pat Name: Erna Murphy Department: Room: Gender: Female Pitching Coach: : 1945 Requested By: Fatmata Bailey Order Number: [id number] Afia MD: Fer Lilly M.D. Interpretive Statements LEXISCAN SESTAMIBI STRESS TEST Procedure: At the baseline, the blood pressure was 179/100 mmHg with a heart rate of 84 bpm. The electrocardiogram showed normal sinus rhythm, incomplete right bundle branch blockwith normal ST and T's. The Lexiscan was infused over a period of 20 seconds. A total of 0.4 mg of Lexiscan was infused. The stress phase was continued for a total of 5 minutes. Heart rate was at the end of stress phase was 91 bpm and a blood pressure of 162/84 mmHg. The EKG at the peak infusion revealed normal sinus rhythm with no significant ST-T wave changes. Sestamibi was injected 20 seconds after the Lexiscan infusion. Blood pressure at the end of recovery phase was 155/85 mmHg with a heart rate of 90 bpm. Conclusion: 1. Normal EKG response to Lexiscan infusion 2. No Lexiscan induced chest pain or cardiac arrhythmia. 3. Normal blood pressure and heart rate response. 4. Sestamibi/sestamibi perfusion scan pending; see separate report. Electronically Signed On 07-05-2024 21:35:46 CDT by Fer Lilly M.D. [id number]
[2024-06-26 08:51] VITALS: BMI 23.3
--- NOTE | 2024-06-26 08:51 | NMCV_ITS ---
NM jose perf SPECT r/s* [id number] Erna Murphy Age: 78 Gender: F : 1945 Exam Date: 06/26/2024 09:35 Ordering Phys: Fatmata Oliver MD Technologist: MACARENA Wong Exam Location: [facility] Indications: cp STRESS TEST Please see separate stress test report in [facility] for full findings IMAGE PROTOCOL Rest/Stress 1 Lexiscan Day Radiopharmaceutical Dose (mCi) Administration Site Administered by Rest: Tc-99m 11 IV Anne De La Garza, SOCIAL INSURANCE ADMINISTRATOR Sestamibi Stress:Tc-99m 32.6 IV Anne Meléndeze, SOCIAL INSURANCE ADMINISTRATOR Sestamibi Rest: 26-Jun-2024 60 Discovery 630 Stress: 26-Jun-2024 30 Discovery 630 0.4mg Lexiscan. . Images obtained in supine and prone position. SPECT RESULTS Technical Quality: Good Raw Data Analysis: Normal Image Corrections: No attenuation or motion correction applied Summed Stress Score: 6 Summed Rest Score: 0 Summed Difference Score: 6 PERFUSION FINDINGS Medium sized area of moderate to severe reversibility noted in basal to mid inferior and inferolateral wall suggestive of ischemia in RCA territory FUNCTIONAL RESULTS (calculated via Gated SPECT) Stress Image LV EF (%): 89 Stress EDV (mL):46 TID: 0.81 Stress ESV (mL):5 FUNCTIONAL FINDINGS: There is normal left ventricular systolic function. IMPRESSIONS Medium sized area of moderate to severe reversibility noted in basal to distal inferior wall suggestive of ischemia in RCA territory. This is a positive stress test. Left ventricular ejection fraction appeared to be normal, there appeared to be no wall motion abnormality Holly Arrington MD (Electronically Signed) Final Date: 28 June 2024 19:50 S
[2024-06-26] MEDS: regadenoson 0.4 Mg/5 ml Syringe IVP (10:36)
[2024-06-26 10:49] VITALS: BP 155/85; PULSE 90
== END 2024-06-26 08:29 | disposition home or self-care (01) ==
LOC: CDL 08:28
PROVIDERS: PCP Family Medicine; Visit Provider Family Medicine
DX: R06.09 Other forms of dyspnea (principal); E78.1 Pure hyperglyceridemia; R94.39 Abnormal result of other cardiovascular function study
CPT/HCPCS: 36415; 78452; 93017; 96374; A9500; J2785

== ENCOUNTER → 2024-07-09 14:06 | Outpatient (BNVA) | payer MEDICARE, OTHER, SELFPAY | PROVIDERS: PCP Family Medicine; Visit Provider Internal Medicine Cardiovascular Disease | DX: R94.39 Abnormal result of other cardiovascular function study (principal); I65.23 Occlusion and stenosis of bilateral carotid arteries; E78.5 Hyperlipidemia, unspecified; Z86.73 Personal history of transient ischemic attack (TIA), and cerebral infarction without residual deficits; I12.9 Hypertensive chronic kidney disease with stage 1 through stage 4 chronic kidney disease, or unspecified chronic kidney disease; N18.9 Chronic kidney disease, unspecified; Z87.891 Personal history of nicotine dependence | CPT/HCPCS: 99204 ==

== ENCOUNTER 2024-07-15 09:46 | Outpatient (CLI) | payer MEDICARE, OTHER, SELFPAY ==
[2024-07-15 10:19] LABS: Basophils # 0.1 10^3/uL (0.0-0.1); Basophils % 1.1 %; Eosinophils # 0.1 10^3/uL (0.0-0.8); Eosinophils % 1.2 %; Hematocrit 42.3 % (36-47); Lymphocytes # 1.7 10^3/uL (0.8-4.8); Lymphocytes % 22.9 %; Mean Corpuscular HGB Conc 31.7 g/dL (30-55); Mean Corpuscular Hemoglobin 29.2 pg (27-33); Mean Corpuscular Volume 92.2 fl (85-98); Mean Platelet Volume 9.7 fL (7.4-10.4); Monocytes # 0.7 10^3/uL (0.2-0.9); Neutrophils % 64.5 %; Nucleated Red Blood Cells % 0 %; Platelet Count 348 10^3/cmm (157-399); Red Blood Count 4.59 10^6/uL (3.85-5.65); Red Cell Distribution Width 13.3 % (12.1-15.1); White Blood Count 7.29 10^3/uL (3.29-11.43)
[2024-07-15 10:28] LABS: INR 0.95 (0.8-1.2)
[2024-07-15 10:37] LABS: Anion Gap 15.2 (5-19); Blood Urea Nitrogen 22 mg/dL (8-23); Calcium 8.9 mg/dL (8.5-10.5); Carbon Dioxide 25 mmol/L (22-29); Chloride 109 mmol/L (98-107); Glucose 108 mg/dL (65-115); Osmolality Calculated 304 mOsm/kg (285-295); Potassium 4.2 mmol/L (3.5-5.1); Sodium 145 mmol/L (136-145)
== END 2024-07-15 09:47 | disposition home or self-care (01) ==
LOC: LAB 09:47
PROVIDERS: PCP Family Medicine; Visit Provider Internal Medicine Cardiovascular Disease
DX: I48.91 Unspecified atrial fibrillation (principal); R06.02 Shortness of breath; Z79.01 Long term (current) use of anticoagulants; I25.118 Atherosclerotic heart disease of native coronary artery with other forms of angina pectoris
CPT/HCPCS: 36415; 80048; 85025; 85610; 86850; 86900

== ENCOUNTER 2024-07-18 05:50 | Outpatient (CLI) | payer MEDICARE, OTHER, SELFPAY ==
[2024-07-18] VITALS (16 sets, daily range): BP systolic 109–200; BP diastolic 70–124; PULSE 61–93; RESP 12–24; TEMP 36.7–37.2; O2SAT 93–97; BMI 23.3
--- NOTE | 2024-07-18 06:00 | XACV_ITS ---
Exam Room: 2 Ht: 160 cm Wt: 60 kg BSA: 1.64 m2 Gender: Female : 1945 Any Known Allergies: No known allergies Exam Priority: Routine Procedure(s): Procedure Description: Diagnostic procedure Procedure Description: PCI procedure Procedure Description: Left Heart Catheterization Procedure Description: Drug Eluting Coronary Stent Procedure Description: PTCA Procedure Description: Miscellaneous Procedure Description: ACT Procedure Description: Coronary Angiography Procedure Description: Pressure Wire Malik QUINTANILLA; Diagnostic Cath Status: Elective Diagnostic Findings * The left main is a medium caliber vessel with mild diffuse calcification. * The left left anterior descending artery is a medium caliber vessel which appears to taper off to his LV apex. The proximal and the mid LAD was found to have moderate diffuse calcification. Proximal LAD near to the ostium was found to have around 60% narrowing. The mid LAD was found to have mild diffuse disease. The artery gives of multiple small diagonal branches which are found to have mild to moderate diffuse disease. * The left circumflex artery is a medium caliber vessel which was found to have moderate calcification proximally. There is a 50% segmental narrowing in the proximal segment. Following this, the artery appeared to be somewhat ectatic. Mild diffuse intimal irregularities were noted in the large first obtuse marginal branch. The circumflex proper in the AV groove was found to have mild diffuse intimal regularities.. The artery appears to gives off [id number] collaterals to the PLV and the PDA branches of the right coronary artery. * The right coronary artery was found to be totally occluded proximally at the ostium. PCI Indication: New Onset Angina <= 2 months Interventional Findings * IFR: After equalizing the distal and proximal pressure of IFR wire proximal to the lesion, proximal LCx lesion was crossed with IFR wire. Spot IFR was recorded which was 0.94 nonsignificant. IFR: After equalizing the distal and proximal pressure of IFR wire proximal to the lesion, proximal LAD lesion was crossed with IFR wire. Spot IFR was recorded which was 0.88 and significant. Successful PCI to proximal LAD. Lesion was prepared with 3.0 x 12 mm AB TREK balloon, followed by deployment of MDT KENDALL 4.0 x 15 mm stent posted at high ZACHARIAH . Stent was then post-dilated with serial dilatation of NC MDT EUPHORA 4.5 x 8 at nominal in its entire length to ensure proper approximation. Excellent angiographic result with PRETTY-3 flow was achieved. Conclusions 1. This 77-year-old white female with multiple risk factors for coronary disease presenting with chest pain and shortness of breath. Abnormal Myocardial perfusion imaging. Cardiac catheterization revealing the following. 2. 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 Moderate to severe disease at the proximal segment, involving the ostium of the left anterior descending artery. Moderate disease in the proximal circumflex artery. Moderate diffuse calcification of the proximal segments of the LAD and circumflex arteries. Grade 2 [id number]-ps-[id number] collaterals filling up the PDA and PLV branches of the right coronary artery. LVEDP of 17 mmHg. 3. I reviewed and discussed the cardiac catheterization data with Dr. Arrington in view of the patient's ongoing symptoms, it does not be appropriate to do an IFR of the proximal LAD lesion and consider PCI, if indicated. Dr. Arrington concurred with this plan and took over further management this patient at this point. Recommendations * 1-Return to inpatient for close monitoring and routine cath care 2-Risk factor modification for secondary prevention 3-Statin and aspirin 81 mg life-long, if tolerated 4-Continue Plavix 75mg p.o. daily for at least one year. We will assess at the end of one year again to continue if further or not 5-Continue optimal medical management 6-Follow up with Dr. Gan in four weeks and your primary care in 10 days. Diagnostic RX Recommendation: other cardiac therapy w/o CABG/PCI LV EDP: 17 mmHg Left Ventriculography Findings: * LV gram was not performed because of the chronic kidney disease. The LVEDP was 17 mmHg. Pressures Phase:Rest AO : 96 / 65 ( 79 ) @ 8:50:00 AM 112 / 77 ( 95 ) @ 8:53:00 AM 162 / 69 ( 104 ) @ 9:00:00 AM 161 / 63 ( 100 ) @ 9:00:00 AM 169 / 71 ( 109 ) @ 9:04:00 AM 158 / 71 ( 106 ) @ 9:11:00 AM 139 / 72 ( 101 ) @ 9:29:00 AM 147 / 57 ( 93 ) @ 10:02:00 AM 103 / 43 ( 69 ) @ 10:13:00 AM 172 / 73 ( 109 ) @ 10:15:00 AM LV : 151 / -1 / 17 @ 9:00:00 AM 149 / -1 / 16 @ 9:00:00 AM 154 / 1 / 18 @ 9:00:00 AM Valves Phase:DefaultPhase AV : 0.0 @ 9:24:05 AM 0.0 @ 9:24:05 AM AV Mean Gradient: 0.0 @ 9:24:05 AM Clinical Evaluation EBL: 5mL-10mL Procedural Details Procedure Consent Obtained. Admit Source: Out Patient. Pre-Procedure Time Out. Identified patient by full name and date of as verbalized by the patient/guarantor. Does the consent match the physician's order: Yes. Accurate & Complete Informed Consent: Yes. Inpatient/Outpatient History & Physical on Chart: Yes. If H&P is completed, is and addenduem needed: No; If yes, is the addendum complete: N/A. Visualize and Verify Site with Patient/Guarantor: N/A. Relevant Radiology Images available: N/A. The risks, benefits, and alternatives of sedation and/or procedure were discussed by physician. The patient agrees to continue. Procedure started. [facility] Clinical Fraility Score: 3: Managing Well. Nanny/Household Manager Indications: Worsening Angina. Chest Pain Symptom Assessment: Typical Angina Symptoms. Correct patient, site and procedure confirmed by cath team. Current diagnosis: Chest Pain, Abnormal stress test. PERRLA. Strong, equal hand swimming pool salesperson bilaterally. Lungs clear x 5 lobes. IV Site on Arrival: 20 gauge in the left anticubital. IV Fluids: 0.9% NaCl at KVO. 300 mL infused prior to mineral ore processing labourer. Pre Procedural Pulses: bilateral radial was 3+. Pre Procedural Pulses: bilateral dorsalis pedis was 3+. Pre Procedural Pulses: bilateral posterior tibial was 1+. Oxygen started at 2liters/min via nasal canula. right radial was prepped with chloroprep then draped in the usual sterile fashion. right groin was prepped with chloroprep then draped in the usual sterile fashion. Physician notified. Baseline sample Acquired. HR: 81 BPM. Physician arrived. Physician scrubbed in. Immediate Pre-Procedure Time Out. Correct Patient: Yes; Correct Procedure: Yes; Correct Site: Yes; Correct Patient Position: Yes; Correct Supplies: Yes; Dried Flammable Prep: Yes; Blood Products Available: No;. Lidocaine 1% infiltrated to the right radial. Arterial access obtained. A 5 iranian Shamar catheter in over wire. Multiple views taken of left coronary artery. Dr. Arrington called to lab to review images. Catheter redirected to the RCA. Catheter removed over the exchange wire. A 5 iranian JR4 catheter in over wire. View taken on RCA. Catheter removed over the exchange wire. A 5 iranian Angled Pig catheter in over wire. EDP Sample taken: LV 149/-2,16; HR: 74 BPM; SpO2: 92%. Pullback taken: LV 154/1,18; AO 162/69(104); Mean: 0mmHg, Peak to Peak: 0mmHg, SEP: 7sec/min; HR: 74 BPM; SpO2: 92%. Physician scrubbed out. Side port of sheath attached to Normal Saline flush at KVO to maintain patency. ACT drawn. Results 256 seconds. Therapeutic limits - pre-heparin administration 90-150 seconds and monitoring heparin during a vascular procedure >[address] Arrington scrubbed in to perform intervention. Add inventory: Co-towing pilot, endoflator. Catheter removed over the exchange wire. 6 iranian XB 3 guide catheter was inserted over the wire. iFR pressure wire advanced past lesion in proximal LAD. iFR wire out. Exchange wire in through guide to reposition catheter. iFR pressure wire advanced through guide catheter to lesion in ostial circumflex. Ostial circumflex IFR 0.94 mmHg. Wire redirected to lesion in proximal LAD. Pressure wire advanced across lesion to distal LAD. iFR proximal LAD 0.88 mmHg. iFR pullback 0.89mmHg. iFR wire out. Runthrough guidewire was advanced through the guide catheter to lesion in the prox LAD. Guidewire advanced across lesion. Balloon inserted to lesion in the prox LAD. Inflation number : 1 A AB TREK 3.00X12 RX BALLOON was prepped and advanced across the Prox LAD , then inflated to 16 ZACHARIAH for 0:15 seconds. Balloon out. Stent inserted to lesion in the prox LAD. Unable to cross , undeployed stent balloon out over wire. Balloon inserted to lesion in the prox LAD. Inflation number: 2 The AB TREK 3.00X12 RX BALLOON was reinflated across the Prox LAD, to 14 ZACHARIAH for 0:14 seconds. Inflation number: 3 The AB TREK 3.00X12 RX BALLOON was reinflated across the Prox LAD, to 12 ZACHARIAH for 0:11 seconds. Balloon out. Stent inserted to lesion in the prox LAD. Unable to cross , undeployed stent balloon out over wire. 6Fr Guideliner in over runthrough wire. Stent inserted to lesion in the prox LAD. Unable to cross , undeployed stent balloon out over wire. Guideliner out. 3.0 X 12mm IVL Shockwave Balloon in over runthrough wire to lesion in proximal LAD. IVL 10 pulses performed to proximal LAD. IVL 10 pulses performed to proximal LAD. IVL 10 pulses performed to proximal LAD. IVL 10 pulses performed to proximal LAD. IVL 10 pulses performed to proximal LAD. IVL 10 pulses performed to proximal LAD. IVL 10 pulses performed to proximal LAD. IVL 10 pulses performed to proximal LAD. IVL 10 pulses performed to proximal LAD. IVL 10 pulses performed to proximal LAD. IVL 10 pulses performed to proximal LAD. IVL 10 pulses performed to proximal LAD. 3.0 X 12 mm IVL shockwave balloon out over wire. ACT drawn. Results 352 seconds. Therapeutic limits - pre-heparin administration 90-150 seconds and monitoring heparin during a vascular procedure >250 seconds. Stent inserted to lesion in the prox LAD. Intact stent out over the wire. Unable to cross lesion. Guideliner inserted. Stent inserted to lesion in the prox LAD. Inflation Number : 4 A MDT R KENDALL 4.0X15 JODY -Lot [id number] EXP 02-15-2026 was prepped and advanced across the Prox LAD. The stent was deployed at 12 ZACHARIAH for 0:13 seconds. Stent balloon out over wire. Balloon inserted to lesion in the prox LAD. Inflation number : 5 A MDT NC EUPHORA RX 4.94Y78ID BALLOON was prepped and advanced across the Prox LAD , then inflated to 10 ZACHARIAH for 0:08 seconds. Inflation number: 6 The MDT NC EUPHORA RX 4.93F15KQ BALLOON was reinflated across the Prox LAD, to 12 ZACHARIAH for 0:13 seconds. Inflation number: 7 The MDT NC EUPHORA RX 4.50M15QV BALLOON was reinflated across the Prox LAD, to 12 ZACHARIAH for 0:13 seconds. Inflation number: 8 The MDT NC EUPHORA RX 4.45D78SP BALLOON was reinflated across the Prox LAD, to 10 ZACHARIAH for 0:09 seconds. Balloon out. Guideliner out over wire. Results checked. Wire out. Guide catheter out. Aggrastat gtt off at this time as ordered by Dr. Arrington. A TR Band was successful obtaining hemostatsis at the Right Radial artery insertion site. Post Procedure: Pulses reassessed and unchanged. PERRLA. Strong, equal hand swimming pool salesperson bilaterally. No VTE prophylaxis required. Medication's Wasted: Lidocaine 1% = 18 mL. Medication's Wasted: Nitro = 49.6 mg. Total IV fluids: 100 mL. Post-op diagnosis: Significant LAD stenosis, status post lithotripsy/PCI placement of 1 stent. Complications: None. Estimated blood loss: 5mL-10mL. Responsiveness - Normal response to verbal stimuli; alert and oriented, PERRLA. Airway - Unaffected, no intervention required; spontaneous ventilation. Circulation: W/N/L, pulses unchanged. Nausea/Vomiting: No. Procedure completed. Patient transferred by wheelchair to CPRU. Vital chart was stopped. Access Site Site: Right Radial artery Sheath Size: 6 Fr Hemostasis Method: TR Band Hemostasis Success: Successful Complication Findings: none. Procedure Medications Start: 7:40 AM Stop: 7:40 AM Medication: Versed Amount: 1 mg Route: I.V. Start: 7:40 AM Stop: 7:40 AM Medication: Fentanyl Amount: 50 mcg Route: I.V. Start: 7:48 AM Stop: 7:48 AM Medication: Nitrogylcerin Amount: 200 mcg Route: I.A. Start: 7:48 AM Stop: 7:48 AM Medication: Verapamil Amount: 5 mg Route: I.A. Start: 7:49 AM Stop: 7:49 AM Medication: Heparin Amount: 5000 units Route: I.V. Start: 8:21 AM Stop: 8:21 AM Medication: Heparin Amount: 1000 units Route: I.V. Start: 8:24 AM Stop: 8:24 AM Medication: Versed Amount: 1 mg Route: I.V. Start: 8:24 AM Stop: 8:24 AM Medication: Fentanyl Amount: 50 mcg Route: I.V. Start: 8:27 AM Stop: 8:27 AM Medication: Heparin Amount: 2000 units Route: I.V. Start: 8:38 AM Stop: 8:38 AM Medication: Aggrastat 12.5 mg/250 mL Amount: 30 ml Route: I.V. bolus Start: 8:53 AM Stop: 8:53 AM Medication: Aggrastat 12.5 mg/250 mL Amount: 10.8 ml/hr Route: I.V. drip Start: 9:05 AM Stop: 9:05 AM Medication: Plavix Amount: 600 mg Route: P.O. Start: 9:14 AM Stop: 9:14 AM Medication: Nitrogylcerin Amount: 200 mcg Route: I.C. I, the attending physician, have reviewed and verified all procedure medications. Yes, all medications given per verbal order History/Risk Factors Hypertension: Yes Dyslipidemia: Yes Peripheral Arterial Disease (PAD): No Myocardial Infarction (AZ): No Obesity: No Renal Disease: No Tobacco Use: Former Prior Interventions PCI: No CABG: No Valve Surgery: No Report Signatures Interventional Workflow Finalized by Holly Arrington MD on 08/11/2024 10:10 PM Diagnostic Workflow Finalized by Dr Wilson Gan MD [facility] on 07/18/2024 01:47 PM
[2024-07-18] MEDS: sodium chloride 0.9% 250 ML IV (06:20)
[2024-07-18] MEDS: diphenhydrAMINE 50 mg Capsule PO (06:25)
[2024-07-18 06:41] LABS: Anion Gap 14.6 (5-19); Blood Urea Nitrogen 27 mg/dL (8-23); Calcium 8.8 mg/dL (8.5-10.5); Carbon Dioxide 24 mmol/L (22-29); Chloride 106 mmol/L (98-107); Creatinine Clr Calc Pharmacy 28.4916; Glucose 111 mg/dL (65-115); Osmolality Calculated 298 mOsm/kg (285-295); Potassium 3.6 mmol/L (3.5-5.1); Sodium 141 mmol/L (136-145)
--- NOTE | 2024-07-18 06:58 | P.HPUD_ITS ---
Surgery/Procedure H&P Update DATE OF PROCEDURE: July 18, 2024 DATE H&P PERFORMED: 06/26/24 H&P UPDATE INFORMATION: I have reviewed H&P completed within last 30 days, I have examined patient prior to procedure and No changes to prior documentation PREOP DIAGNOSIS: ASHD PRIMARY INDICATION FOR PROCEDURE: Chest pain/shortness of breath, abnormal Myocardial perfusion imaging, multiple risk factors PLANNED PROCEDURE: Operation Date: 07/18/24 07:00 Proposed Procedures p Cardiac Catheterization(Left) - Wilson Gan MD PATIENT REASSESSED PRIOR TO SEDATION, WITH NO CHANGE NOTED: Yes PHYSICAL EXAM: alert and oriented x 3 AIRWAY EVAL/ANESTHESIA PLAN: normal airway, see other exam findings, ASA III, Monitored Anesthesia, Local Anesthesia, Risks, benefits & alternatives of sedation and/or procedure discussed and Patient agrees to continue as planned ADDITIONAL INFORMATION: Because of the abnormal kidney function, she carries a high risk for contrast- induced nephropathy. This was discussed with the patient in detail which is understood well. She was hydrated prior to the procedure.
[2024-07-18] MEDS: sodium chloride 0.9% 1,000 ML 100 ML IV ×2 (10:30→17:03)
--- NOTE | 2024-07-18 11:07 | PC.NURSE ---
1015 to ICU 1 via bed accompanied by dental laboratory manager team. Patient pivots from stretcher to bed with SBA. AAOx4, VSS.
[2024-07-18] MEDS: hyDRALAzine 25 mg Tablet 50 MG PO ×2 (14:15→22:19)
[2024-07-18] MEDS: zolpidem 5 mg Tablet PO (20:32)
[2024-07-19] VITALS (18 sets, daily range): BP systolic 94–187; BP diastolic 56–102; PULSE 65–82; RESP 17–21; TEMP 36.6; O2SAT 92–97
[2024-07-19] MEDS: sodium chloride 0.9% 1,000 ML 100 ML IV (03:26)
[2024-07-19 04:05] LABS: Basophils # 0.1 10^3/uL (0.0-0.1); Basophils % 0.6 %; Eosinophils % 0.4 %; Lymphocytes # 0.9 10^3/uL (0.8-4.8); Lymphocytes % 11.6 %; Mean Corpuscular HGB Conc 32.5 g/dL (30-55); Mean Corpuscular Hemoglobin 29.3 pg (27-33); Mean Corpuscular Volume 90.2 fl (85-98); Neutrophils # 6.02 10^3/uL (1.8-7.7); Nucleated Red Blood Cells % 0 %; Platelet Count 285 10^3/cmm (157-399); Red Blood Count 3.99 10^6/uL (3.85-5.65); Red Cell Distribution Width 13.4 % (12.1-15.1); White Blood Count 8.02 10^3/uL (3.29-11.43)
[2024-07-19 04:32] LABS: Anion Gap 14.2 (5-19); Blood Urea Nitrogen 17 mg/dL (8-23); Calcium 8.1 mg/dL (8.5-10.5); Carbon Dioxide 21 mmol/L (22-29); Chloride 110 mmol/L (98-107); Creatinine Clr Calc Pharmacy 33.8705; Glucose 90 mg/dL (65-115); Osmolality Calculated 295 mOsm/kg (285-295); Potassium 3.2 mmol/L (3.5-5.1); Sodium 142 mmol/L (136-145)
[2024-07-19] MEDS: atorvastatin 40 mg Tablet 20 MG PO (07:49)
[2024-07-19] MEDS: isosorbide mononitrate ER 30 mg Tablet PO (07:50)
[2024-07-19] MEDS: clopidogrel 75 mg Tablet PO (07:50)
[2024-07-19] MEDS: amlodipine 5 mg Tablet PO (07:50)
[2024-07-19] MEDS: aspirin 325 mg Tablet PO (07:51)
--- NOTE | 2024-07-19 11:07 | P.PN_ITS ---
Subjective 2 Subjective: This patient underwent a cardiac catheterization yesterday which revealed a total occlusion of the right coronary artery at the ostium with grade 2 [id number] collaterals. The LAD was found to have hemodynamically significant stenosis based on the IFR. She underwent a PCI of the proximal LAD lesion. The artery was heavily calcified, requiring lithotripsy prior to the stenting. Patient is currently remaining stable with no chest pain. She has significant improvement of the dyspnea on exertion. Has some ecchymosis around the radial arterial puncture site. Good radial pulse. She was found to have elevated creatinine. She was prehydrated. She was admitted to the hospital for IV hydration and close monitoring. Medications: Medication Review Details: Current Medications Acetaminophen (Acetaminophen 325 Mg Tablet) 650 mg PO Q6H PRN PRN Reason: MILD PAIN Hydrocodone Bitart/Acetaminophen (Hydrocodone-Acetaminophen 5-325 Mg Tablet) 1 tab PO Q4H PRN PRN Reason: MODERATE TO SEVERE PAIN Al Hydrox/Mg Hydrox/Simethicone (Hpcz-Yxh-Jyhrmfjir-Clemente 30 Ml Udc) 30 ml PO Q15M PRN PRN Reason: INDIGESTION Amlodipine Besylate (Amlodipine 5 Mg Tablet) 5 mg PO DAILY [facility] Last Admin: 07/19/24 07:50 Dose: 5 mg Aspirin (Aspirin 325 Mg Tablet) 325 mg PO DAILY [facility] Last Admin: 07/19/24 07:51 Dose: 325 mg Aspirin (Aspirin 81 Mg Ec Tablet) 81 mg PO DAILY [facility] Last Admin: 07/19/24 08:02 Dose: Not Given Atorvastatin Calcium (Atorvastatin 40 Mg Tablet) 20 mg PO DAILY [facility] Last Admin: 07/19/24 07:49 Dose: 20 mg Atropine Sulfate (Atropine 1 Mg/Ml Sdv 1 Ml) 0.5 mg IVP PRN PRN PRN Reason: Symptomatic bradycardia Clopidogrel Bisulfate (Clopidogrel 75 Mg Tablet) 75 mg PO DAILY [facility] Last Admin: 07/19/24 07:50 Dose: 75 mg Fentanyl (Fentanyl 50 Mcg/Ml Inj 2ml) 50 mcg IVP PRN PRN PRN Reason: Prior to sheath removal Hydralazine HCl (Hydralazine 25 Mg Tablet) 50 mg PO TID PRN PRN Reason: HYPERTENSION Last Admin: 07/18/24 22:19 Dose: 50 mg Sodium Chloride (Sodium Chloride 0.9%) 1,000 mls @ 100 mls/hr IV .Q10H [facility] Last Admin: 07/19/24 03:26 Dose: 100 mls/hr Isosorbide Mononitrate (Isosorbide Mononitrate Er 30 Mg Tablet) 30 mg PO DAILY [facility] Last Admin: 07/19/24 07:50 Dose: 30 mg Magnesium Hydroxide (Magnesium Hydroxide 30 Ml Udc) 30 ml PO DAILY PRN PRN Reason: CONSTIPATION Naloxone HCl (Naloxone 0.4 Mg/Ml Sdv) 0.1 mg IVP Q2M PRN PRN Reason: RESPIRATORY RATE < 8/MIN Nitroglycerin (Nitroglycerin 0.4 Mg Sublingual Tablet) 0.4 mg SUBLINGUAL Q5M PRN PRN Reason: CHEST PAIN Temazepam (Temazepam 15 Mg Capsule) 15 mg PO BEDTIME PRN PRN Reason: INSOMNIA Zolpidem Tartrate (Zolpidem 5 Mg Tablet) 5 mg PO PRN PRN PRN Reason: Sleep Last Admin: 07/18/24 20:32 Dose: 5 mg Vitals/I&O/Wt Last Vital Signs Temp 97.8 F 07/19/24 05:27 Pulse 68 07/19/24 10:00 Resp 17 07/19/24 10:00 BP 124/57 07/19/24 10:00 Pulse Ox 96 07/19/24 10:00 O2 Del Method Room Air 07/19/24 10:00 07/18/24 07/19/24 07/19/24 22:59 06:59 14:59 Intake Total 895 / 1015 999 / 2015 240 / 240 Output Total 250 / 550 400 / 400 Balance 895 / 715 750 / 1465 -160 / -160 Weight last 48 hrs Weight 137 lb 8 oz Weight 137 lb 12.623 oz Weight 132 lb Physical Exam 2 Narrative: GENERAL: The patient is alert and oriented times three. Not in any acute distress. [] HEENT: No significant pallor, icterus or lymphadenopathy.Oral cavity: There are no mucous membrane lesions. NECK: Trachea appears to be central. No masses noted. No JVD or thyromegaly appreciated. RESPIRATORY: Chest is symmetrical. No intercostals muscle retraction or any accessory muscle activation. There is no chest wall tenderness. Breath sounds are heard bilaterally. No rales or rhonchi heard. No evidence of any consolidation. [] BREASTS: Deferred. [] HEART: The heart sounds are normal. No S3 or S4. [No significant murmurs] []. No pericardial rub ABDOMEN: No vessel pulsations or distention. No tenderness. No organomegaly appreciated. Bowel sounds are normally heard. [] : Deferred. [] RECTAL: Deferred. [] LYMPHATIC: No lymphadenopathy noted in the neck. EXTREMITIES: Good distal radial pulse in the right wrist MUSCULOSKELETAL: No acute joint deformities or swelling SKIN: There are no significant rashes or ecchymosis NEUROPSYCHIATRIC: The patient is alert and oriented x3. Appears to be in a good mood. No tremors or rigidity noted. [] Data 07/19/24 03:09 07/19/24 03:09 A&P Assessment and plan (1) Hypokalemia: The patient's potassium found to be 3.2. I may go ahead and give her potassium 40 mEq p.o.(20 mEq x 2), to supplement the potassium. (2) Atherosclerotic heart disease of [place] coronary artery with other forms of angina pectoris: Patient status post PCI of the proximal LAD, currently seems to be stable. Total occlusion of right coronary artery at the ostium. Mild to moderate diffuse disease in the other vessels. (3) Benign essential HTN: Patient was given 2 doses of hydralazine yesterday for blood pressure control. I may start her on carvedilol 3.125 mg p.o. twice daily for better control of the blood pressure, in addition to her other medications. (4) Dyslipidemia: May continue on the simvastatin. (5) Chronic kidney disease: The creatinine has improved from 1.6-1.2. Will continue the current measures Qualifiers: Chronic kidney disease stage: stage 3 (moderate) Chronic kidney disease stage 3 subtype: stage 3a (GFR 45-59) Qualified Code(s): N18.31 - Chronic kidney disease, stage 3a Plan Supplement potassium with 40 mEq of p.o. potassium. Carvedilol 3.125 mg p.o. twice daily. Continue other medications as disease If the patient continues remain stable, we we will discharge home today Follow-up appointment at [facility] in 1 to 2 weeks Appointment with me in the office as scheduled Attestations 2 Medical Necessity Statement*: Possible discharge home today Coding Level of Care Code 61832 Diagnoses Hypokalemia E87.6 Atherosclerotic heart disease of [place] coronary artery with other forms of angina pectoris I25.118 Benign essential HTN I10 Dyslipidemia E78.5 Stage 3a chronic kidney disease N18.31 Chronic kidney disease stage: stage 3 (moderate) Chronic kidney disease stage 3 subtype: stage 3a (GFR 45-59)
[2024-07-19] MEDS: carvedilol 3.125 mg Tablet PO (11:18)
[2024-07-19] MEDS: potassium chloride ER 20 mEq Tablet 40 MEQ PO (11:18)
--- NOTE | 2024-07-19 13:09 | PC.NURSE ---
discharge instructions given to patient and spouse, IV removed, prescriptions sent to [facility]. No further questions. Patient wheeled to private vehicle by this nurse. driving.
== END 2024-07-19 13:05 | disposition home or self-care (01) ==
LOC: CCL 05:52 → ICU 10:11
PROVIDERS: Internal Medicine Cardiovascular Disease; PCP Family Medicine; Visit Provider Internal Medicine Cardiovascular Disease
DX: I25.118 Atherosclerotic heart disease of native coronary artery with other forms of angina pectoris (principal); I25.82 Chronic total occlusion of coronary artery; E87.6 Hypokalemia; E78.5 Hyperlipidemia, unspecified; I12.9 Hypertensive chronic kidney disease with stage 1 through stage 4 chronic kidney disease, or unspecified chronic kidney disease; N18.31 Chronic kidney disease, stage 3a; Z87.891 Personal history of nicotine dependence
CPT/HCPCS: 36415; 80048; 85025; 85347; 93458; 93571; 93572; 96374; 96375; 99152; 99153; C1725; C1761; C1769; C1874; C1887; C1894; C9600; J1644; J2250; J3010; J3490; J7030; J7050; Q0163; Q9967

== ENCOUNTER → 2024-07-29 07:56 | Outpatient (BNVA) | payer MEDICARE, OTHER, SELFPAY | PROVIDERS: PCP Family Medicine; Visit Provider Nurse Practitioner Family | DX: I25.10 Atherosclerotic heart disease of native coronary artery without angina pectoris (principal); I12.9 Hypertensive chronic kidney disease with stage 1 through stage 4 chronic kidney disease, or unspecified chronic kidney disease; N18.9 Chronic kidney disease, unspecified; Z87.891 Personal history of nicotine dependence | CPT/HCPCS: 36415; 80048; 99214 ==

== ENCOUNTER 2024-10-02 13:27 | Oncology outpatient (recurring) (ONCR) | payer MEDICARE, OTHER, SELFPAY ==
[2024-10-02] MEDS: denosumab 60 mg SDV SUBCUT (13:57)
== END 2024-10-25 23:59 | disposition home or self-care (01) ==
PROVIDERS: PCP Family Medicine; Visit Provider Family Medicine
DX: M81.0 Age-related osteoporosis without current pathological fracture (principal); Z79.899 Other long term (current) drug therapy
CPT/HCPCS: 96372; J0897

== ENCOUNTER → 2024-10-09 10:10 | Outpatient (BNVA) | payer MEDICARE, OTHER, SELFPAY | PROVIDERS: PCP Family Medicine; Visit Provider Nurse Practitioner Family | DX: I25.118 Atherosclerotic heart disease of native coronary artery with other forms of angina pectoris (principal); R06.02 Shortness of breath; Z87.891 Personal history of nicotine dependence; I12.9 Hypertensive chronic kidney disease with stage 1 through stage 4 chronic kidney disease, or unspecified chronic kidney disease; N18.9 Chronic kidney disease, unspecified | CPT/HCPCS: 93005; 99214 ==

== ENCOUNTER → 2024-10-16 08:20 | Outpatient (BNVA) | payer MEDICARE, OTHER, SELFPAY | PROVIDERS: PCP Family Medicine; Visit Provider Podiatrist Foot & Ankle Surgery | DX: L60.3 Nail dystrophy (principal); I73.9 Peripheral vascular disease, unspecified | CPT/HCPCS: 11721 ==

== ENCOUNTER 2024-10-29 09:18 | Outpatient (CLI) | payer MEDICARE, OTHER, SELFPAY ==
--- NOTE | 2024-10-29 | ECG_ITS ---
[facility]: 2024-[facility]29 Pat Name: Erna Murphy Department: Room: Gender: Female Junior Systems Analyst: : 1945 Requested By: Anny Monique Order Number: [id number] Oreilly MD: Fer Lilly M.D. Interpretive Statements LEXISCAN SESTAMIBI STRESS TEST Procedure: At the baseline, the blood pressure was 200/93 mmHg with a heart rate of 85 bpm. The electrocardiogram showed normal sinus rhythm, right bundle branch block with normal ST and T's. The Lexiscan was infused over a period of 20 seconds. A total of 0.4 mg of Lexiscan was infused. The stress phase was continued for a total of 5 minutes. Heart rate was at the end of stress phase was 88 bpm and a blood pressure of 182/71 mmHg. The EKG at the peak infusion revealed normal sinus rhythm with no significant ST-T wave changes. Sestamibi was injected 20 seconds after the Lexiscan infusion. Blood pressure at the end of recovery phase was 181/75 mmHg with a heart rate of 87 bpm. Conclusion: 1. Normal EKG response to Lexiscan infusion 2. No Lexiscan induced chest pain or cardiac arrhythmia. 3. Normal blood pressure and heart rate response. 4. Sestamibi/sestamibi perfusion scan pending; see separate report. Electronically Signed On 11-17-2024 13:21:09 ARMORED CAR DRIVER by Fer Lilly M.D. [email or web address] [id number]
[2024-10-29 09:32] VITALS: BMI 23.3
--- NOTE | 2024-10-29 09:35 | NMCV_ITS ---
NM jose perf SPECT r/s* [id number] Erna Murphy Age: 79 Gender: F : 1945 Exam Date: 10/29/2024 10:33 Ordering Phys: Anny Monique NP Technologist: MACARENA Wong Exam Location: [facility] Indications: cp STRESS TEST Please see separate stress test report in [facility] for full findings IMAGE PROTOCOL Rest/Stress 1 Lexiscan Day Radiopharmaceutical Dose (mCi) Administration Site Administered by Rest: Tc-99m 10.8 IV Anne De La Garza, ELIGIBILITY SPECIALIST Sestamibi Stress:Tc-99m 33 IV Anne Moctezumagle, ELIGIBILITY SPECIALIST Sestamibi Rest: 29-Oct-2024 60 Discovery 630 Stress: 29-Oct-2024 30 Discovery 630 0.4mg Lexiscan. Images obtained in supine and prone position. SPECT RESULTS Technical Quality: Good Raw Data Analysis: Normal Image Corrections: No attenuation or motion correction applied Summed Stress Score: 6 Summed Rest Score: 1 Summed Difference Score: 5 PERFUSION FINDINGS There is a medium sized area of mostly reversible perfusion defect seen in the inferior and inferolateral wall. This is consistent with small area of prior infarct with medium sized area of miguel-infarct ischemia in these territories. FUNCTIONAL RESULTS (calculated via Gated SPECT) Stress Image LV EF (%): 79 Stress EDV (mL):63 TID: 1.29 Stress ESV (mL):13 FUNCTIONAL FINDINGS: There is normal left ventricular systolic function. TID ratio is elevated. IMPRESSIONS 1. Abnormal myocardial perfusion imaging with small area of prior infarct with medium sized area of miguel-infarct ischemia seen in inferior and inferolateral stoner. 2. LV systolic function 3. TID ratio is elevated. Fer Lilly MD (Electronically Signed) Final Date: 29 October 2024 20:36 S
[2024-10-29] MEDS: regadenoson 0.4 Mg/5 ml Syringe IVP (11:08)
[2024-10-29 11:22] VITALS: BP 181/75; PULSE 87
--- NOTE | 2024-10-29 15:00 | USCV_ITS ---
Erna Murphy Age: 79 Gender: F : 1945 Exam Date: 10/29/2024 09:42 Ordering Phys: Anny Monique NP Technologist: [place] [facility] [place]: cp BP: 124 / 74 HR: Rhythm: Sinus Technical Quality: Adequate MEASUREMENTS (Male / Female) Normal Values 2D ECHO LV Diastolic Diameter PLAX 3.4 cm 4.2 - 5.9 / 3.9 - 5.3 cm IVS Diastolic Thickness 1.5 cm 0.6 - 1.0 / 0.6 - 0.9 cm IVS Systolic Thickness 1.8 cm LVPW Diastolic Thickness 1.3 cm 0.6 - 1.0 / 0.6 - 0.9 cm LVPW Systolic Thickness 1.6 cm LV Ejection Fraction 2D Teich 59.9 % LV Ejection Fraction MOD 4C 70.9 % LV Ejection Fraction MOD 2C 66.6 % LV Ejection Fraction 2C AL 67.1 % RA Systolic Volume 4C AL 24.0 ml RA Systolic Volume 4C MOD 23.6 ml M-MODE LA Ao Ratio MM 1.3 AV Cusp Separation MM 1.9 cm FINDINGS Left Ventricle Right Ventricle Right Atrium Left Atrium Mitral Valve Aortic Valve Tricuspid Valve Pulmonic Valve Pericardium Aorta IVC CONCLUSIONS Limited echocardiogram performed to assess LV systolic function LV systolic function is normal with EF of 60-65%. No regional wall motion abnormalities. Fer Lilly MD (Electronically Signed) Final Date: 30 October 2024 09:15 S
== END 2024-10-29 09:19 | disposition home or self-care (01) ==
LOC: CDL 09:19
PROVIDERS: PCP Family Medicine; Visit Provider Nurse Practitioner Family
DX: R06.02 Shortness of breath (principal); I25.2 Old myocardial infarction; I99.8 Other disorder of circulatory system; R93.1 Abnormal findings on diagnostic imaging of heart and coronary circulation
CPT/HCPCS: 36415; 78452; 93017; 93308; 96374; 99214; A9500; J2785

== ENCOUNTER 2024-11-18 10:19 | Outpatient (CLI) | payer MEDICARE, OTHER, SELFPAY ==
[2024-11-18 11:03] LABS: Basophils % 0.4 %; Eosinophils # 0.2 10^3/uL (0.0-0.8); Eosinophils % 2.2 %; Hematocrit 44.6 % (36-47); Lymphocytes # 1.6 10^3/uL (0.8-4.8); Mean Corpuscular HGB Conc 31.8 g/dL (30-55); Mean Corpuscular Hemoglobin 29.7 pg (27-33); Mean Corpuscular Volume 93.3 fl (85-98); Mean Platelet Volume 9.8 fL (7.4-10.4); Monocytes # 0.8 10^3/uL (0.2-0.9); Monocytes % 8.4 %; Neutrophils # 6.28 10^3/uL (1.8-7.7); Neutrophils % 70.6 %; Nucleated Red Blood Cells % 0 %; Platelet Count 329 10^3/cmm (157-399); Red Blood Count 4.78 10^6/uL (3.85-5.65); White Blood Count 8.92 10^3/uL (3.29-11.43)
[2024-11-18 11:36] LABS: Anion Gap 14.2 (5-19); Blood Urea Nitrogen 18 mg/dL (8-23); Calcium 8.6 mg/dL (8.5-10.5); Carbon Dioxide 24 mmol/L (22-29); Chloride 107 mmol/L (98-107); Glucose 89 mg/dL (65-115); NT Pro B Type Natriuretic Pept 376 pg/mL (0-450); Osmolality Calculated 293 mOsm/kg (285-295); Potassium 4.2 mmol/L (3.5-5.1); Sodium 141 mmol/L (136-145); Thyroid Stimulating Hormone 3.26 uIU/mL (0.27-4.20)
== END 2024-11-18 10:20 | disposition home or self-care (01) ==
LOC: LAB 10:21
PROVIDERS: PCP Family Medicine; Visit Provider Internal Medicine Cardiovascular Disease
DX: N18.31 Chronic kidney disease, stage 3a (principal); I65.23 Occlusion and stenosis of bilateral carotid arteries; I25.10 Atherosclerotic heart disease of native coronary artery without angina pectoris; Z86.73 Personal history of transient ischemic attack (TIA), and cerebral infarction without residual deficits; R06.02 Shortness of breath; L60.3 Nail dystrophy; I25.118 Atherosclerotic heart disease of native coronary artery with other forms of angina pectoris
CPT/HCPCS: 36415; 80048; 83880; 84443; 85025

== ENCOUNTER → 2024-11-19 09:13 | Outpatient (BNVA) | payer MEDICARE, OTHER, SELFPAY | PROVIDERS: PCP Family Medicine; Visit Provider Nurse Practitioner Family | DX: I25.10 Atherosclerotic heart disease of native coronary artery without angina pectoris (principal); R94.39 Abnormal result of other cardiovascular function study; I10 Essential (primary) hypertension; E78.5 Hyperlipidemia, unspecified; I25.9 Chronic ischemic heart disease, unspecified; Z87.891 Personal history of nicotine dependence | CPT/HCPCS: 99214 ==

== ENCOUNTER 2024-11-30 09:03 | Observation (INO) | payer MEDICARE, OTHER, SELFPAY ==
[2024-11-30] VITALS (23 sets, daily range): BP systolic 80–217; BP diastolic 44–115; PULSE 60–87; RESP 15–26; TEMP 36.3–36.6; O2SAT 90–98; BMI 23.3; BMI 24.1
--- NOTE | 2024-11-30 10:09 | XRR_ITS ---
PROCEDURE INFORMATION: Exam: XR Chest Exam date and time: 11/30/2024 10:12 AM Age: 79 years old Clinical indication: Cough and dyspnea; Additional info: Dyspnea/cough TECHNIQUE: Imaging protocol: Radiologic exam of the chest. Views: 1 view. COMPARISON: CR XR chest 1V portable [id number] 02/10/2023 2:33 AM FINDINGS: Lungs: Unremarkable. No consolidation or mass. Pleural spaces: Unremarkable. No pleural effusion. No pneumothorax. Heart/Mediastinum: Mild cardiomegaly is noted. Bones/joints: Unremarkable. XR/XR chest 1V portable [id number] IMPRESSION: Stable cardiomegaly
--- NOTE | 2024-11-30 10:09 | ECG_ITS ---
[facility] Test Date: 2024-11-30 Pat Name: Erna Murphy Department: Room: Gender: Female Web Administrator: : 1945 Requested By: Yong Gagnon Order Number: [id number] Afia MD: Fer Lilly M.D. Measurements Intervals [place] Rate: 59 P: -6 [place]: 185 QRS: -26 QRSD: 126 T: -1 QT: 437 QTc: 436 Interpretive Statements SINUS BRADYCARDIA BORDERLINE LEFT AXIS DEVIATION [QRS AXIS < -20] RIGHT BUNDLE BRANCH BLOCK [120+ ms QRS DURATION, UPRIGHT V1, 40+ ms S IN I/aVL/V4/V5/V6] Compared to ECG 11/30/2024 09:35:37 Sinus rhythm no longer present Right-axis deviation no longer present Electronically Signed On 11-30-2024 17:57:20 VIDEO SOFTWARE ENGINEER by Fer Lilly M.D. [id number]
--- NOTE | 2024-11-30 10:09 | CTR_ITS ---
PROCEDURE INFORMATION: Exam: CT Head Without Contrast Exam date and time: 11/30/2024 10:25 AM Age: 79 years old Clinical indication: Syncope and collapse TECHNIQUE: Imaging protocol: Computed tomography of the head without contrast. Radiation optimization: All CT scans at this facility use at least one of these dose optimization techniques: automated exposure control; mA and/or kV adjustment per patient size (includes targeted exams where dose is matched to clinical indication); or iterative reconstruction. COMPARISON: CT head wo con* [id number] 06/10/2024 11:34 AM RADIATION DOSE METRICS: Total DLP (mGy-cm): 982.48 FINDINGS: Brain: There is prominent chronic periventricular white matter ischemic change. There is no evidence of mass effect, hemorrhage or infarct. Mild diffuse cerebral atrophy is noted. Cerebral ventricles: No ventriculomegaly. No midline shift. Paranasal sinuses: Visualized sinuses are unremarkable. No fluid levels. Mastoid air cells: Visualized mastoid air cells are well aerated. Bones: Unremarkable. No acute fracture. Soft tissues: Unremarkable. CT/CT head wo con* [id number] IMPRESSION: 1. No acute findings noted 2. Cerebral atrophy with chronic ischemic changes noted
[2024-11-30 10:32] LABS: Basophils # 0.1 10^3/uL (0.0-0.1); Basophils % 0.6 %; Eosinophils # 0.2 10^3/uL (0.0-0.8); Eosinophils % 2.5 %; Hematocrit 43.6 % (36-47); Lymphocytes # 1.2 10^3/uL (0.8-4.8); Lymphocytes % 14.3 %; Mean Corpuscular HGB Conc 30.7 g/dL (30-55); Mean Corpuscular Hemoglobin 28.7 pg (27-33); Mean Corpuscular Volume 93.4 fl (85-98); Monocytes # 0.6 10^3/uL (0.2-0.9); Monocytes % 7.3 %; Neutrophils # 6.23 10^3/uL (1.8-7.7); Neutrophils % 74.9 %; Nucleated Red Blood Cells % 0 %; Platelet Count 344 10^3/cmm (157-399); Red Blood Count 4.67 10^6/uL (3.85-5.65); White Blood Count 8.32 10^3/uL (3.29-11.43)
--- NOTE | 2024-11-30 10:44 | W.ED.SYNCOPE ---
HPI - Syncope General: Chief Complaint: Syncope Stated Complaint: fainted about 10 mins ago Time Seen by Provider: 11/30/24 10:08 History of Present Illness: 79-year-old female presents emergency room via private vehicle after a near syncopal episode at a local grocery store. She did not actually fall her essentially caught her. No chest pain. He reports she seemed out of it for about 7 to 8 minutes. She had no chest pain she chronically has shortness of breath that has not changed. She had a stent placed previously she still is taking her Plavix. After the stent was placed she has no change in her breathing issues. She had not taken her morning medicines. Blood pressure is seen the patient was 217 systolic Associated symptoms: Deny abdominal pain, chest pain or fever(s) Related Data Home Medications ?Medication ?Instructions ?Recorded ?Confirmed aspirin 325 mg tablet 325 mg PO DAILY 10/01/19 11/30/24 simvastatin 40 mg tablet 40 mg PO DAILY 10/01/19 11/30/24 zolpidem 5 mg tablet (Ambien) 5 mg PO PRN PRN Sleep 10/01/19 11/30/24 amlodipine 5 mg tablet 5 mg PO DAILY 10/04/19 11/30/24 Held on 11/19/24. Instructions: Home Medication placed on hold at Doctor's office denosumab 60 mg/mL subcutaneous See Rx Instructions .Route .COMPLEX 10/13/21 11/30/24 syringe (Prolia) Previous Rx's ?Medication ?Instructions ?Recorded clopidogrel 75 mg tablet 75 mg PO DAILY #90 tabs 07/19/24 carvedilol 3.125 mg tablet 3.125 mg PO BID #60 tabs 11/19/24 isosorbide mononitrate 30 mg 30 mg PO DAILY #30 tabs 11/19/24 tablet,extended release 24 hr Allergies Allergy/AdvReac Type Severity Reaction Status Date / Time No Known Allergies Allergy Verified 11/30/24 09:31 Review of Systems Const: Denies: fever(s) or chills Card: Denies: chest pain Resp: Reports: dyspnea; Denies: non-productive cough, wheezing or chest congestion GI: Denies: abdominal pain : Denies: dysuria, urinary frequency or urinary urgency Musc: Denies: neck pain or back pain Skin/Breast: Denies: rash PFSH ED PFSH: Medical History Bronchiolitis Anemia Chronic kidney disease Hypertriglyceridemia Acute hypotension Age related osteoporosis CVA (cerebral vascular accident) Carotid stenosis Hypertension Surgical History Status post colonoscopy (07/12/21) Hx of cataract surgery Status post right breast lumpectomy S/P carotid endarterectomy Family History Other Hypertension Social History Smoking and tobacco/nicotine status: former use of tobacco/nicotine Physical Exam Const: GENERAL APPEARANCE: cooperative ORIENTATION/CONSCIOUSNESS: Yes awake, Yes oriented to person, Yes oriented to place and Yes oriented to time HENMT: COMMON NORMALS: normocephalic, atraumatic and hearing grossly normal bilaterally HEAD & SCALP: normocephalic and atraumatic Resp: COMMON NORMALS: normal respiratory effort, No retractions, No use of accessory muscles and clear to auscultation bilaterally AUSCULTATION: clear to auscultation bilaterally Cardio: COMMON NORMALS: regular rate, regular rhythm and No murmurs present (Cardio) RATE: regular rate RHYTHM: regular rhythm GI: COMMON NORMALS: Soft to palpation and No hepatosplenomegaly present AUSCULTATION: Yes normoactive bowel sounds PALPATION: Yes Soft to palpation, No Tenderness to palpation present (GI), No Guarding due to palpation present (GI) and Yes No hepatosplenomegaly present Extremity: COMMON NORMALS: normal to inspection, capillary refill normal, no clubbing, cyanosis or edema, no calf tenderness and no pedal edema Neuro: SENSORIUM/ORIENTATION: Yes oriented to person, Yes oriented to place and Yes oriented to time Skin: COMMON NORMALS: no rashes or lesions noted GENERAL SKIN EXAM: no rashes or lesions noted Course Vital Signs: Vital signs: Vital Signs Temperature 97.5 F L 11/30/24 16:01 Pulse Rate 81 11/30/24 16:24 Respiratory Rate 15 11/30/24 16:24 Blood Pressure 142/80 11/30/24 16:01 Pulse Oximetry 96 11/30/24 16:01 Oxygen Delivery Me thod Room Air 11/30/24 16:01 MDM - Syncope Medical Decision Making Patient right your blood pressure was markedly elevated we gave her hydralazine as well as her regular morning medicines that she had not yet taken. She has not episode of hypotension after that followed by escalating blood pressures again. She confirmed that she had not taken her morning medicines as of late as she had told us earlier. Reviewing her chart last month she had a stress test that showed some reversible ischemia it does not appear as if it been addressed yet. Given her labile blood pressure the findings of the stress test and the syncopal episode today will admit discussed with hospitalist Dr. Atkinson will review. He will consult cardiology if he feels appropriate. At this point patient has not had any EKG changes troponins are normal. Patient had mild hyperkalemia she was given IV fluids Dr. Atkinson will address further Medical Records I reviewed the patient's medical records. Lab Data I reviewed the patient's lab results. 11/30/24 10:19 11/30/24 10:19 Radiology Impressions Chest X-Ray 11/30/24 10:09 IMPRESSION: Stable cardiomegaly Head CT 11/30/24 10:09 IMPRESSION: 1. No acute findings noted 2. Cerebral atrophy with chronic ischemic changes noted Laboratory Results WBC 8.32 10^3/uL (3.29-11.43) 11/30/24 10:19 RBC 4.67 10^6/uL (3.85-5.65) 11/30/24 10:19 Hgb 13.40 g/dL (11.27-16.99) 11/30/24 10:19 Hct 43.6 % (36-47) 11/30/24 10:19 MCV 93.4 fl (85-98) 11/30/24 10:19 MCH 28.7 pg (27-33) 11/30/24 10:19 MCHC 30.7 g/dL (30-55) 11/30/24 10:19 RDW 14.0 % (12.1-15.1) 11/30/24 10:19 Plt Count 344 10^3/cmm (157-399) 11/30/24 10:19 MPV 10.0 fL (7.4-10.4) 11/30/24 10:19 Neut % (Auto) 74.9 % 11/30/24 10:19 Lymph % (Auto) 14.3 % 11/30/24 10:19 [place] % (Auto) 7.3 % 11/30/24 10:19 Eos % (Auto) 2.5 % 11/30/24 10:19 Baso % (Auto) 0.6 % 11/30/24 10:19 Neut # (Auto) 6.23 10^3/uL (1.8-7.7) 11/30/24 10:19 Lymph # (Auto) 1.2 10^3/uL (0.8-4.8) 11/30/24 10:19 [place] # (Auto) 0.6 10^3/uL (0.2-0.9) 11/30/24 10:19 Eos # (Auto) 0.2 10^3/uL (0.0-0.8) 11/30/24 10:19 Baso # (Auto) 0.1 10^3/uL (0.0-0.1) 11/30/24 10:19 Nucleated RBC % (auto) 0 % 11/30/24 10:19 Nucleated RBCs # 0.0 /100WBC 11/30/24 10:19 Sodium 138 mmol/L (136-145) 11/30/24 10:19 Potassium 5.4 mmol/L (3.5-5.1) H 11/30/24 10:19 Chloride 104 mmol/L (98-107) 11/30/24 10:19 Carbon Dioxide 23 mmol/L (22-29) 11/30/24 10:19 Anion Gap 16.4 (5-19) 11/30/24 10:19 BUN 18 mg/dL (8-23) 11/30/24 10:19 Creatinine 1.4 mg/dL (0.5-0.9) H 11/30/24 10:19 GFR Calculation Not Reportable 11/30/24 10:19 Glucose 104 mg/dL (65-115) 11/30/24 10:19 Estimat Average Glucose 117 11/30/24 10:19 Hemoglobin A1c 5.7 % (4.0-6.0) 11/30/24 10:19 Calculated Osmolality 288 mOsm/kg (285-295) 11/30/24 10:19 Calcium 8.6 mg/dL (8.5-10.5) 11/30/24 10:19 Total Bilirubin 0.3 mg/dL (0.15-1.2) 11/30/24 10:19 AST 15 U/L (0-32) 11/30/24 10:19 ALT 8 U/L (0-33) 11/30/24 10:19 Alkaline Phosphatase 70 U/L (35-105) 11/30/24 10:19 Troponin T Baseline 21 ng/L (0-10) H 11/30/24 10:19 Troponin T 120 Minute 15.52 ng/L (0-10) H 11/30/24 12:07 Delta Troponin T -5.48 ABS# (0-10) L 11/30/24 12:07 Total Protein 6.8 g/dL (6.6-8.7) 11/30/24 10:19 Albumin 4.2 g/dL (3.5-5.2) 11/30/24 10:19 Globulin 2.6 g/dL (1.3-4.6) 11/30/24 10:19 Urine Color Yellow (Yellow) 11/30/24 11:05 Urine Appearance Clear (CLEAR) 11/30/24 11:05 Urine pH TNP 11/30/24 11:05 Ur Specific [place] Not Reportable 11/30/24 11:05 Urine Protein Not Reportable 11/30/24 11:05 Urine Glucose (UA) Not Reportable 11/30/24 11:05 Urine Ketones Not Reportable 11/30/24 11:05 Urine Blood Not Reportable 11/30/24 11:05 Urine Nitrate Not Reportable 11/30/24 11:05 Urine Bilirubin Not Reportable 11/30/24 11:05 Urine Urobilinogen Not Reportable 11/30/24 11:05 Ur Leukocyte Esterase Not Reportable 11/30/24 11:05 Urine RBC 0-4 /hpf (0-2) H 11/30/24 11:05 Urine WBC 0-4 /hpf (0-5) H 11/30/24 11:05 Ur Squamous Epith Cells 3-5 /hpf (0-5) 11/30/24 11:05 Amorphous Sediment Not Reportable 11/30/24 11:05 Urine Bacteria Trace /hpf (NONE) 11/30/24 11:05 Influenza A (PCR) Negative (Negative) 11/30/24 10:18 Influenza Type B (PCR) Negative (Negative) 11/30/24 10:18 RSV (PCR) Negative (Negative) 11/30/24 10:18 SARS-CoV-2 (PCR) Negative (Negative) 11/30/24 10:18 All radiology interpretation(s) finalized by discharge Discharge Plan Discharge Patient Disposition: Placed in Observation Admit Provider: Sb Atkinson Clinical Impression: Carotid stenosis, Benign essential HTN, Old cardioembolic stroke without late effect, Abnormal cardiovascular stress test, Atherosclerotic heart disease of [place] coronary artery with other forms of angina pectoris, Syncopal episodes, Hyperkalemia Coding Level of Care Code ED Consultant In Ergonomics And Safety for Fatimah Reyez
[2024-11-30 10:49] LABS: Alanine Aminotransferase 8 U/L (0-33); Albumin Level 4.2 g/dL (3.5-5.2); Alkaline Phosphatase 70 U/L (35-105); Aspartate Amino Transferase 15 U/L (0-32); Blood Urea Nitrogen 18 mg/dL (8-23); Calcium 8.6 mg/dL (8.5-10.5); Carbon Dioxide 23 mmol/L (22-29); Chloride 104 mmol/L (98-107); Creatinine Clr Calc Pharmacy 28.0245; Globulin 2.6 g/dL (1.3-4.6); Glucose 104 mg/dL (65-115); Osmolality Calculated 288 mOsm/kg (285-295); Sodium 138 mmol/L (136-145); Total Bilirubin 0.3 mg/dL (0.15-1.2); Total Protein 6.8 g/dL (6.6-8.7); Troponin(5th) Baseline 21 ng/L (0-10)
[2024-11-30 10:50] LABS: Anion Gap 16.4 (5-19); Potassium 5.4 mmol/L (3.5-5.1)
[2024-11-30 11:08] LABS: Influenza A NEGATIVE (Negative); Influenza B NEGATIVE (Negative); Respiratory Syncytial Virus Ce NEGATIVE (Negative); SARS-CoV-2 PCR NEGATIVE (Negative)
[2024-11-30 11:14] LABS: Add Urine Microscopic? NO
[2024-11-30] MEDS: carvedilol 3.125 mg Tablet PO (11:20)
[2024-11-30] MEDS: hyDRALAzine 20 mg/mL INJ 1 mL IVP (11:20)
[2024-11-30] MEDS: isosorbide mononitrate ER 30 mg Tablet PO (11:20)
[2024-11-30] MEDS: amlodipine 5 mg Tablet PO (11:20)
[2024-11-30 11:24] LABS: Urine Appearance Clear (CLEAR); Urine Color Yellow (Yellow)
[2024-11-30 11:27] LABS: Bacteria Urine TRACE /hpf; RBC Urine 0-4 /hpf (0-2); UA Manual Slide Review YES; WBC Urine 0-4 /hpf (0-5)
[2024-11-30 11:28] LABS: Charge for UA Resulting for Rev
[2024-11-30] MEDS: sodium chloride 0.9% 1,000 ML 999 ML IV (11:59)
--- NOTE | 2024-11-30 11:59 | PC.NURSE ---
pt b/p decreased to 86/54; pt placed in trendelenburg and Dr. Jiang notified. verbal orders for fluids. NS Bolus with pressure bag started. pt reports feeling dizzy/weak
--- NOTE | 2024-11-30 12:15 | ECG_ITS ---
[facility] Test Date: 2024-11-30 Pat Name: Erna Murphy Department: Room: Gender: Female Director Of Cath Lab: : 1945 Requested By: Yong Gagnon Order Number: [id number] Afia MD: Fer Lilly M.D. Measurements Intervals [place] Rate: 66 P: -38 PA: 194 QRS: -30 QRSD: 133 T: -12 QT: 447 QTc: 471 Interpretive Statements SINUS RHYTHM BORDERLINE LEFT AXIS DEVIATION [QRS AXIS < -20] RIGHT BUNDLE BRANCH BLOCK [120+ ms QRS DURATION, UPRIGHT V1, 40+ ms S IN I/aVL/V4/V5/V6] Compared to ECG 11/30/2024 10:57:51 Sinus bradycardia no longer present Electronically Signed On 11-30-2024 19:26:48 MAGAZINE REPAIRER by Fer Lilly M.D. [email or web address] [id number]
[2024-11-30 12:38] LABS: Troponin 5 2HR 15.52 ng/L (0-10); Troponin 5 2HR Delta -5.48 ABS# (0-10)
--- NOTE | 2024-11-30 13:23 | PC.NURSE ---
this nurse updated pt and family on admission process; denies any further needs/questions.
--- NOTE | 2024-11-30 13:50 | PC.NURSE ---
attempted report @3823; CSU unable to take report at this time
--- NOTE | 2024-11-30 15:36 | PC.NURSE ---
attempted report x2 times, states Mony to call back when ready.
--- NOTE | 2024-11-30 15:44 | P.HP_ITS ---
Providers/Chief Complaint 2 Admitting Physician: Sb Atkinson MD Primary Care Provider: Fatmata Oliver MD Chief Complaint: fainted about 10 mins ago History of Present Illness Erna Murphy is a 79 year old female with past medical history of hypertension, hyperlipidemia, CAD with multivessel disease, PCI to LAD in June 2024, stroke, carotid artery stenosis presents to the ER today after having an episode of syncope while at [facility]. As per the patient lost consciousness for 4 to 5 minutes. Patient did not have any aura prior or after the episode. Denied having any chest pain, nausea, vomiting, headache, dizziness or seizure-like activity during or before the episode. As per the patient she has not been taking her antihypertensive for the last 2 days as her blood pressures on her home blood pressure checks has been on the lower side. On presentation to the ER her blood pressures were around 210 systolics for which she received 10 of IV hydralazine, home dose of oral Coreg, amlodipine and Imdur after which her blood pressure dropped to 80 systolics. Afterward she was given 1 L of IV fluid bolus. On examination currently her blood pressure is 160 systolic. Patient is awake and alert. Denies any nausea, vomiting, headache. Denies any weakness in her arms or legs. She is. Chronically has slightly lower power in her right arm since her last stroke. Patient also gives a history of exertional dyspnea which has been ongoing for many months. She states for the same reason he had an angiogram back in June 2024 when PCI. Patient was having similar complaints last month for which she underwent cardiac stress test as per cardiology recommendations. She is not aware of the results as of now. Review of Systems 2 General: Reports: 10 or more systems reviewed and unremarkable except in HPI and below Const: Denies: fever(s), chills, body aches, change in appetite, change in weight, malaise, night sweats, diaphoresis, change in sleep pattern, daytime sleepiness or snoring Eyes: Denies: change in vision, blurry vision, photophobia, eye discomfort or eye discharge ENMT: Denies: throat pain, enlarged tonsils, hoarseness, mouth pain, oral sores, dry mouth, tinnitus, nasal congestion or post nasal drip Card: Denies: chest pain, palpitations, irregular heart rhythm, edema, swelling of feet/ankles, lightheadedness, syncope, pre-syncope, dyspnea on exertion, orthopnea, leg pain with exertion or acrocyanosis Resp: Denies: dyspnea, productive cough, non-productive cough, wheezing, stridor, pain on inspiration, change in phlegm color, hemoptysis or chest congestion GI: Denies: abdominal pain, nausea, vomiting, hematemesis, coffee ground emesis, dysphagia, heartburn, diarrhea, constipation, bloating, GI cramping, change in bowel habits, pain on defecation, hematochezia or melena : Denies: flank pain, dysuria, urinary frequency, urinary urgency, urinary hesitancy, nocturia or hematuria Musc: Denies: neck pain, back pain, extremity pain, joint pain, joint swelling, joint redness, joint stiffness or limited range of motion Neuro: Denies: headache(s), numbness in extremities, weakness in extremities, sensory changes, lack of coordination, difficulty walking, frequent falls, dizziness, vertigo, confusion, Slurred speech present, difficulty communicating thoughts or seizure-like activity Psych: Denies: anxiety, depression, mood swings, panic attacks, hopelessness or irritability Endo: Denies: polyuria, polydipsia, tired all the time, cold intolerance, excessive sweating, flushing or heat intolerance Jh/Lymph: Denies: easy bruising or easy bleeding All/Imm: Denies: tongue swelling, facial swelling or acute wheezing Medications/Allergies Home Medications ?Medication ?Instructions ?Recorded ?Confirmed ?Last Taken ?Type aspirin 325 mg tablet 325 mg PO DAILY 10/01/1905/1911/30/24 History simvastatin 40 mg tablet 40 mg PO DAILY 10/01/1905/1911/29/24 History zolpidem 5 mg tablet (Ambien) 5 mg PO PRN PRN Sleep 11/30/24 07/17/24 21:00 History amlodipine 5 mg tablet 5 mg PO DAILY 10/04/1911/3007/18/24 04:45 History Held on 11/19/24. Instructions: Home Medication placed on hold at Doctor's office denosumab 60 mg/mL subcutaneous See Rx Instructions .R oute .COMPLEX 10/13/21 11/30/24 10/13/22 History syringe (Prolia) clopidogrel 75 mg tablet 75 mg PO DAILY #90 tabs 10/02/1511/30/24 11/30/24 Rx carvedilol 3.125 mg tablet 3.125 mg PO BID #60 tabs 11/30/24 Unknown Rx isosorbide mononitrate 30 mg 30 mg PO DAILY #30 tabs 0 11/19/24 11/30/24 11/30/24 Rx tablet,extended release 24 hr Allergies Allergy/AdvReac Type Severity Reaction Status Date / Time No Known Allergies Allergy Verified 11/30/24 09:31 PFSH Acute 2 PFSH: Medical History (Updated 11/30/24 @ 17:26 by Sb Atkinson MD) Status post insertion of drug-eluting stent into left anterior descending (LAD) artery Bronchiolitis Anemia Chronic kidney disease Hypertriglyceridemia Acute hypotension Age related osteoporosis CVA (cerebral vascular accident) Carotid stenosis Hypertension Surgical History (Updated 11/30/24 @ 17:26 by Sb Atkinson MD) Status post colonoscopy (07/12/21) Hx of cataract surgery Status post right breast lumpectomy S/P carotid endarterectomy Family History Other Hypertension Social History Smoking and tobacco/nicotine status: former use of tobacco/nicotine Vitals/I&O/Wt Last Vital Signs Temp 97.3 F L 11/30/24 09:22 Pulse 77 11/30/24 15:30 Resp 22 H 11/30/24 15:30 BP 102/65 11/30/24 15:30 Pulse Ox 95 11/30/24 15:30 O2 Del Method Room Air 11/30/24 12:15 11/30/24 11/30/24 11/30/24 06:59 14:59 22:59 Intake Total 1000 / 1000 Balance 1000 / 1000 Weight last 48 hrs Weight 59.874 kg Physical Exam 2 Narrative: General: No acute distress, AO x3 HEENT: PERRLA, pupils bilaterally equal and reactive Chest: Normal vesicular breath sounds, no added sounds, equal good air entry bilaterally CVS: S1-S2 regular, no murmurs, no tachycardia, no gallops, no rubs Abdomen: Soft, nontender, no organomegaly, bowel sounds present Neuro: No focal deficits, no facial deformity, AO x3, power 5/5 in all limbs Data 11/30/24 10:19 11/30/24 10:19 A&P Assessment and plan (1) Syncope and collapse: Could be in setting of hypertensive urgency. Patient has not been taking her antihypertensive for last few days. Denies any history of seizures. Denies any aura around the episodes. Blood pressures on presentation to the ER 200 systolics. Seizure precaution. Fall precaution. Orthostatic blood pressure check. CT head negative for acute stroke. Does give history of stroke and carotid artery stenosis post endarterectomy in the past. (2) Uncontrolled hypertension: Presentation blood pressure of more than 200 systolic. Did become hypotensive after multiple medications in the ER. Target blood pressure for next 24 hours 25% of the presenting blood pressures which would be less than 150 systolic. Restart home dose of Imdur 30 mg oral daily, Coreg 3.125 mg twice daily. IV hydralazine 10 mg every 4 hourly as needed for systolic of more than 160 mmHg. (3) Abnormal cardiovascular stress test: Denies any active chest pain. Discussed history of exertional dyspnea. Stress test back in October 2024 concern for miguel-infarct ischemia in RCA territory. Appreciate cardiac angiogram on 07/18. Check echocardiogram. Continue with home dose of aspirin, Plavix, statin. Check A1c, lipid panel. Cycle troponins. Will consult cardiology for further recommendations. (4) CAD (coronary artery disease): Qualifiers: Coronary Disease-Associated Artery/Lesion type: [place] artery [place] vs. transplanted heart: [place] heart Associated angina: without angina Q ualified Code(s): I25.10 - Atherosclerotic heart disease of [place] coronary artery without angina pectoris (5) Carotid stenosis: Check carotid Dopplers. 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 Cardiac diet. Protonix OPD prophylaxis Heparin 5000 Q12 hourly for DVT prophylaxis. PDMP PDMP Reviewed: Not Reviewed Attestations 2 Medical Necessity Statement*: Requires further hospitalization for management of syncope with collapse with concerns for hypertensive urgency in a patient with recent positive cardiac stress test, history of CAD post PCI to LAD Diagnoses Syncope and collapse R55 Uncontrolled hypertension I10 Abnormal cardiovascular stress test R94.39 Coronary artery disease involving [place] coronary artery of [place] heart without angina pectoris I25.10 Coronary Disease-Associated Artery/Lesion type: [place] artery [place] vs. 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
--- NOTE | 2024-11-30 15:56 | USR_ITS ---
PROCEDURE INFORMATION: Exam: US Duplex Bilateral Extracranial Arteries; Complete; Carotid Arteries Exam date and time: 11/30/2024 6:31 PM Age: 79 years old Clinical indication: Syncope and collapse; Prior surgery; Surgery date: 6+ months; Surgery type: Unsure of dates but patient had left endarterectomy; Additional info: Post syncope, h/o left carotid artery endartrectomy TECHNIQUE: Imaging protocol: Real-time duplex ultrasound scan of the bilateral extracranial arteries combining odell scale, color Doppler and spectral waveform analysis with image documentation. Complete exam. Exam focused on the carotid arteries. COMPARISON: CT head wo con* [id number] 11/30/2024 10:25 AM FINDINGS: Right common carotid artery: Unremarkable. No occlusion or stenosis. Waveforms are normal. Right internal carotid artery: Elevated velocity involving the right proximal ICA measuring up to 222 cm/s. Right ICA/CCA ratio: 3.9 Right external carotid artery: No stenosis in the origin. Right vertebral artery: Unremarkable. Antegrade flow. Left common carotid artery: Unremarkable. No occlusion or stenosis. Waveforms are normal. Left internal carotid artery: Unremarkable. No occlusion or stenosis. Waveforms are normal. Left ICA/CCA ratio: Within normal limits. Left external carotid artery: No stenosis in the origin. Left vertebral artery: Unremarkable. Antegrade flow. Other findings: Elevated velocities involving the origin of the right subclavian artery measuring up to 234 cm/s. US/CV carotid duplex BI* [id number] IMPRESSION: 1. Approximately 50-69% stenosis involving the right proximal ICA. 2. Elevated velocities involving the origin of the right subclavian artery concerning for a hemodynamically significant stenosis. REFERENCES: SRU CRITERIA. The degree of internal carotid artery stenosis is based on criteria defined by the Society of Radiologists in Ultrasound (SRU). Normal is no stenosis. Mild is less than 50% stenosis. Moderate is 50-69% stenosis. Severe is greater than 69% stenosis to near occlusion. Near occlusion is a markedly narrowed lumen. Total occlusion is no detectable patent lumen.
[2024-11-30 16:24] LABS: Estmated Average Glucose 117; Hemoglobin A1C 5.7 % (4.0-6.0)
[2024-11-30 16:41] LABS: Iron 56 ug/dL (37-145)
[2024-11-30 16:42] LABS: Troponin 5 6HR 16.05 ng/L (0-10)
[2024-11-30 16:43] LABS: Troponin 5 6HR Delta -4.95 ng/L (0-12)
[2024-11-30 16:56] LABS: Procalcitonin 0.05 ng/mL (0-0.5); Vitamin B12 192 pg/mL (232-1245)
--- NOTE | 2024-11-30 16:58 | ECG_ITS ---
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 Measurements Intervals [place] Rate: 79 P: 66 CT: 184 QRS: 96 QRSD: 121 T: 17 QT: 419 QTc: 482 Interpretive Statements SINUS RHYTHM BORDERLINE RIGHT AXIS DEVIATION [QRS AXIS > 90] POSSIBLE RIGHT VENTRICULAR CONDUCTION DELAY [RSR (QR) IN V1/V2] Compared to ECG 11/30/2024 12:15:37 Right bundle-branch block no longer present Electronically Signed On 11-30-2024 19:26:05 [employer] by Fer Lilly M.D. [email or web address]
[2024-11-30 17:14] LABS: Percent Saturation 19.4 % (20-50); Total Iron Binding Capacity 288 mcg/dl; Unsaturated Iron Binding 232 ug/dL (112-347)
[2024-11-30] MEDS: heparin 5,000 unit/mL INJ 1 mL 5000 UNIT SUBCUT (18:14)
[2024-11-30] MEDS: docusate sodium 100 mg Capsule PO (18:14)
[2024-12-01] MEDS: heparin 5,000 unit/mL INJ 1 mL 5000 UNIT SUBCUT (04:29)
[2024-12-01] MEDS: hyDRALAzine 20 mg/mL INJ 1 mL 10 MG IVP (04:43)
[2024-12-01 04:52] VITALS: BP 175/113; PULSE 77; RESP 25; TEMP 36.7; O2SAT 96
[2024-12-01 05:37] LABS: Basophils % 0.5 %; Eosinophils # 0.1 10^3/uL (0.0-0.8); Eosinophils % 1.5 %; Hematocrit 38.9 % (36-47); Lymphocytes # 1.6 10^3/uL (0.8-4.8); Lymphocytes % 19.6 %; Mean Corpuscular HGB Conc 31.4 g/dL (30-55); Mean Corpuscular Hemoglobin 28.9 pg (27-33); Mean Corpuscular Volume 92.2 fl (85-98); Mean Platelet Volume 10.2 fL (7.4-10.4); Monocytes # 0.8 10^3/uL (0.2-0.9); Monocytes % 9.2 %; Neutrophils # 5.64 10^3/uL (1.8-7.7); Nucleated Red Blood Cells % 0 %; Platelet Count 265 10^3/cmm (157-399); Red Blood Count 4.22 10^6/uL (3.85-5.65); Red Cell Distribution Width 14.4 % (12.1-15.1); White Blood Count 8.17 10^3/uL (3.29-11.43)
[2024-12-01 05:59] LABS: Alanine Aminotransferase 7 U/L (0-33); Albumin Level 3.7 g/dL (3.5-5.2); Alkaline Phosphatase 59 U/L (35-105); Aspartate Amino Transferase 13 U/L (0-32); Blood Urea Nitrogen 23 mg/dL (8-23); Calcium 8.4 mg/dL (8.5-10.5); Carbon Dioxide 19 mmol/L (22-29); Chloride 110 mmol/L (98-107); Chol HDL Ratio 4.53 mg/dL (0.0-4.40); Cholesterol 136 mg/dL (0-200); Globulin 2.3 g/dL (1.3-4.6); Glucose 95 mg/dL (65-115); HDL Cholesterol 30 mg/dL (60-100); LDL Cholesterol Calculated 78 mg/dL (50-129); Magnesium 2.2 mg/dL (1.7-2.3); Osmolality Calculated 291 mOsm/kg (285-295); Phosphorus 2.6 mg/dL (2.5-4.5); Sodium 139 mmol/L (136-145); Total Bilirubin 0.2 mg/dL (0.15-1.2); Triglycerides 142 mg/dL (0-150)
[2024-12-01 06:00] VITALS: BP 143/66; PULSE 75; RESP 22
[2024-12-01 06:01] LABS: Anion Gap 14.1 (5-19); Potassium 4.1 mmol/L (3.5-5.1)
[2024-12-01 06:10] LABS: Folate Level 7.6 ng/mL (4.8-37.3)
[2024-12-01 06:30] VITALS: BP 138/65; PULSE 77; RESP 20
[2024-12-01 08:00] VITALS: BP 121/60; PULSE 69; RESP 20; TEMP 36.6; O2SAT 96
[2024-12-01] MEDS: isosorbide mononitrate ER 30 mg Tablet PO (08:04)
[2024-12-01] MEDS: clopidogrel 75 mg Tablet PO (08:04)
[2024-12-01] MEDS: docusate sodium 100 mg Capsule PO (08:04)
[2024-12-01] MEDS: aspirin 81 mg EC Tablet PO (08:04)
[2024-12-01] MEDS: atorvastatin 40 mg Tablet 20 MG PO (08:05)
[2024-12-01] MEDS: pantoprazole DR 40 mg Tablet PO (08:05)
[2024-12-01 08:10] VITALS: BP 178/85; PULSE 74; RESP 21; O2SAT 96
--- NOTE | 2024-12-01 10:19 | P.DS_ITS ---
Discharge Providers Date of Admission: 11/30/24 12:26 Date of Discharge: December 01, 2024 Attending Provider at Admission: Sb Atkinson MD Attending Provider at Discharge: Sb Atkinson MD Primary Care Provider: Fatmata Oliver MD Diagnoses at Discharge Discharge Diagnosis (1) Syncope and collapse: Status: Acute (2) Uncontrolled hypertension: Status: Acute (3) Abnormal cardiovascular stress test: Status: Acute (4) CAD (coronary artery disease): Status: Acute Qualifiers: Associated angina: without angina Coronary Disease-Associated Artery/Lesion type: [place] artery [place] vs. transplanted heart: white [place] heart Qualified Code(s): I25.10 - Atherosclerotic heart disease of [place] coronary artery without angina pectoris (5) Carotid stenosis: Status: Acute Qualifiers: Laterality: bilateral Qualified Code(s): I65.23 - Occlusion and stenosis of bilateral carotid arteries (6) S/P carotid endarterectomy: Status: Acute (7) Status post insertion of drug-eluting stent into left anterior descending (LAD) artery: Status: Acute (8) Old cardioembolic stroke without late effect: Status: Acute Reason for Visit Reason for Visit: fainted about 10 mins ago Hospital Course Hospital Course Erna Murphy is a 79 year old female with past medical history of hypertension, hyperlipidemia, CAD with multivessel disease, PCI to LAD in June 2024, stroke, carotid artery stenosis presents to the ER today after having an episode of syncope while at [facility]. As per the patient lost consciousness for 4 to 5 minutes. Patient did not have any aura prior or after the episode. Denied having any chest pain, nausea, vomiting, headache, dizziness or seizure-like activity during or before the episode. As per the patient she has not been taking her antihypertensive for the last 2 days as her blood pressures on her home blood pressure checks has been on the lower side. On presentation to the ER her blood pressures were around 210 systolics for which she received 10 of IV hydralazine, home dose of oral Coreg, amlodipine and Imdur after which her blood pressure dropped to 80 systolics. Afterward she was given 1 L of IV fluid bolus. On examination currently her blood pressure is 160 systolic. Patient is awake and alert. Denies any nausea, vomiting, headache. Denies any weakness in her arms or legs. She is. Chronically has slightly lower power in her right arm since her last stroke. Patient also gives a history of exertional dyspnea which has been ongoing for many months. She states for the same reason he had an angiogram back in June 2024 when PCI. Patient was having similar complaints last month for which she underwent cardiac stress test as per cardiology recommendations. She is not aware of the results as of now. Multiple etiologies for syncope were ruled out including stroke. She underwent carotid artery Doppler which was stable at her baseline. She was admitted to the hospital further evaluation management. During hospitalization patient did not have any further chest pain. She was continued on home antihypertensives on which her blood pressure remained stable. Echocardiogram was done which showed a normal EF without regional wall motion abnormality or changes as per her last echocardiogram from 07/18. She has been discharged to hemodynamically stable condition with continuation of her home dose of Coreg and Imdur. She is to check her blood pressure daily at home and maintain a blood pressure diary. She is to follow-up with her PCP and cardiology team on set appointment with a blood pressure diary for further adjustment of antihypertensive as needed. Physical Exam Narrative: General: No acute distress, AO x3 HEENT: PERRLA, pupils bilaterally equal and reactive Chest: Normal vesicular breath sounds, no added sounds, equal good air entry bilaterally CVS: S1-S2 regular, no murmurs, no tachycardia, no gallops, no rubs Abdomen: Soft, nontender, no organomegaly, bowel sounds present Neuro: No focal deficits, no facial deformity, AO x3, power 5/5 in all limbs Discharge Data Studies Completed and Pending Completed Studies During Hospitalization Category Date Time Status CT head wo con* [id number] Stat Cat Scan 11/30/24 10:09 Completed XR chest 1V portable [id number] Stat Exams 11/30/24 10:09 Completed CV carotid duplex BI* [id number] Routine Ultrasound 11/30/24 15:56 Completed CV. echo complete* [id number] Routine Ultrasound 12/01/24 15:56 Completed Pending at discharge Category Date Time Status Complete Blood Count w/Auto AM LABS Lab 12/02/24 04:00 Ordered Complete Blood Count w/Auto AM LABS Lab 12/03/24 04:00 Ordered Comprehensive Metabolic Panel AM LABS Lab 12/02/24 04:00 Ordered Comprehensive Metabolic Panel AM LABS Lab 12/03/24 04:00 Ordered Magnesium AM LABS Lab 12/02/24 04:00 Ordered Magnesium AM LABS Lab 12/03/24 04:00 Ordered Phosphorus AM LABS Lab 12/02/24 04:00 Ordered Phosphorus AM LABS Lab 12/03/24 04:00 Ordered Radiology Impressions Chest X-Ray 11/30/24 10:09 IMPRESSION: Stable cardiomegaly Head CT 11/30/24 10:09 IMPRESSION: 1. No acute findings noted 2. Cerebral atrophy with chronic ischemic changes noted Carotid Doppler Study 11/30/24 15:56 IMPRESSION: 1. Approximately 50-69% stenosis involving the right proximal ICA. 2. Elevated velocities involving the origin of the right subclavian artery concerning for a hemodynamically significant stenosis. REFERENCES: SRU CRITERIA. The degree of internal carotid artery stenosis is based on criteria defined by the Society of Radiologists in Ultrasound (SRU). Normal is no stenosis. Mild is less than 50% stenosis. Moderate is 50-69% stenosis. Severe is greater than 69% stenosis to near occlusion. Near occlusion is a markedly narrowed lumen. Total occlusion is no detectable patent lumen. Echocardiogram: CONCLUSIONS LV systolic function is normal with EF of 55-60%. Grade 1 diastolic dysfunction. Mild mitral regurgitation. Mild tricuspid regurgitation. Small sized pericardial effusion. Compared to prior echocardiogram from 2023, patient has a small sized pericardial effusion, otherwise no significant changes. Fer Lilly MD (Electronically Signed) Final Date: 01 December 2024 09:17 Laboratory Results WBC 8.17 10^3/uL (3.29-11.43) 12/01/24 05:19 RBC 4.22 10^6/uL (3.85-5.65) 12/01/24 05:19 Hgb 12.20 g/dL (11.27-16.99) 12/01/24 05:19 Hct 38.9 % (36-47) 12/01/24 05:19 MCV 92.2 fl (85-98) 12/01/24 05:19 MCH 28.9 pg (27-33) 12/01/24 05:19 MCHC 31.4 g/dL (30-55) 12/01/24 05:19 RDW 14.4 % (12.1-15.1) 12/01/24 05:19 Plt Count 265 10^3/cmm (157-399) 12/01/24 05:19 MPV 10.2 fL (7.4-10.4) 12/01/24 05:19 Neut % (Auto) 69.0 % 12/01/24 05:19 Lymph % (Auto) 19.6 % 12/01/24 05:19 [place] % (Auto) 9.2 % 12/01/24 05:19 Eos % (Auto) 1.5 % 12/01/24 05:19 Baso % (Auto) 0.5 % 12/01/24 05:19 Neut # (Auto) 5.64 10^3/uL (1.8-7.7) 12/01/24 05:19 Lymph # (Auto) 1.6 10^3/uL (0.8-4.8) 12/01/24 05:19 [place] # (Auto) 0.8 10^3/uL (0.2-0.9) 12/01/24 05:19 Eos # (Auto) 0.1 10^3/uL (0.0-0.8) 12/01/24 05:19 Baso # (Auto) 0.0 10^3/uL (0.0-0.1) 12/01/24 05:19 Nucleated RBC % (auto) 0 % 12/01/24 05:19 Nucleated RBCs # 0.0 /100WBC 12/01/24 05:19 Sodium 139 mmol/L (136-145) 12/01/24 05:19 Potassium 4.1 mmol/L (3.5-5.1) 12/01/24 05:19 Chloride 110 mmol/L (98-107) H 12/01/24 05:19 Carbon Dioxide 19 mmol/L (22-29) L 12/01/24 05:19 Anion Gap 14.1 (5-19) 12/01/24 05:19 BUN 23 mg/dL (8-23) 12/01/24 05:19 Creatinine 1.2 mg/dL (0.5-0.9) H 12/01/24 05:19 GFR Calculation Not Reportable 12/01/24 05:19 Glucose 95 mg/dL (65-115) 12/01/24 05:19 Estimat Average Glucose 117 11/30/24 10:19 Hemoglobin A1c 5.7 % (4.0-6.0) 11/30/24 10:19 Calculated Osmolality 291 mOsm/kg (285-295) 12/01/24 05:19 Calcium 8.4 mg/dL (8.5-10.5) L 12/01/24 05:19 Phosphorus 2.6 mg/dL (2.5-4.5) 12/01/24 05:19 Magnesium 2.2 mg/dL (1.7-2.3) 12/01/24 05:19 Iron 56 ug/dL (37-145) 11/30/24 15:54 TIBC 288 mcg/dl 11/30/24 15:54 % Saturation 19.4 % (20-50) L 11/30/24 15:54 Unsat Iron Binding 232 ug/dL (112-347) 11/30/24 15:54 Total Bilirubin 0.2 mg/dL (0.15-1.2) 12/01/24 05:19 AST 13 U/L (0-32) 12/01/24 05:19 ALT 7 U/L (0-33) 12/01/24 05:19 Alkaline Phosphatase 59 U/L (35-105) 12/01/24 05:19 Troponin T Baseline 21 ng/L (0-10) H 11/30/24 10:19 Troponin T 120 Minute 15.52 ng/L (0-10) H 11/30/24 12:07 Delta Troponin T -5.48 ABS# (0-10) L 11/30/24 12:07 Troponin T Hi Sens 6Hr 16.05 ng/L (0-10) H 11/30/24 15:54 Troponin T Hi Sens 6Hr Delta -4.95 ng/L (0-12) L 11/30/24 15:54 Total Protein 6.0 g/dL (6.6-8.7) L 12/01/24 05:19 Albumin 3.7 g/dL (3.5-5.2) 12/01/24 05:19 Globulin 2.3 g/dL (1.3-4.6) 12/01/24 05:19 Triglycerides 142 mg/dL (0-150) 12/01/24 05:19 Cholesterol 136 mg/dL (0-200) 12/01/24 05:19 LDL Cholesterol, Calc 78 mg/dL (50-129) 12/01/24 05:19 HDL Cholesterol 30 mg/dL (60-100) L 12/01/24 05:19 LDL/HDL Ratio 2.60 RATIO (0.00-3.22) 12/01/24 05:19 Cholesterol/HDL Ratio 4.53 mg/dL (0.0-4.40) H 12/01/24 05:19 Vitamin B12 192 pg/mL (232-1245) L 11/30/24 15:54 Folate 7.6 ng/mL (4.8-37.3) 12/01/24 05:19 Procalcitonin 0.05 ng/mL (0-0.5) 11/30/24 15:54 Urine Color Yellow (Yellow) 11/30/24 11:05 Urine Appearance Clear (CLEAR) 11/30/24 11:05 Urine pH TNP 11/30/24 11:05 Ur Specific [place] Not Reportable 11/30/24 11:05 Urine Protein Not Reportable 11/30/24 11:05 Urine Glucose (UA) Not Reportable 11/30/24 11:05 Urine Ketones Not Reportable 11/30/24 11:05 Urine Blood Not Reportable 11/30/24 11:05 Urine Nitrate Not Reportable 11/30/24 11:05 Urine Bilirubin Not Reportable 11/30/24 11:05 Urine Urobilinogen Not Reportable 11/30/24 11:05 Ur Leukocyte Esterase Not Reportable 11/30/24 11:05 Urine RBC 0-4 /hpf (0-2) H 11/30/24 11:05 Urine WBC 0-4 /hpf (0-5) H 11/30/24 11:05 Ur Squamous Epith Cells 3-5 /hpf (0-5) 11/30/24 11:05 Amorphous Sediment Not Reportable 11/30/24 11:05 Urine Bacteria Trace /hpf (NONE) 11/30/24 11:05 Influenza A (PCR) Negative (Negative) 11/30/24 10:18 Influenza Type B (PCR) Negative (Negative) 11/30/24 10:18 RSV (PCR) Negative (Negative) 11/30/24 10:18 SARS-CoV-2 (PCR) Negative (Negative) 11/30/24 10:18 Vitals Last Vital Signs Temp 97.9 F 12/01/24 08:00 Pulse 74 12/01/24 08:10 Resp 21 H 12/01/24 08:10 BP 178/85 12/01/24 08:10 Pulse Ox 96 12/01/24 08:10 O2 Del Method Room Air 12/01/24 08:10 Discharge Plan Discharge Patient Disposition: Home Condition: Stable Prescriptions: New aspirin 81 mg Tablet,Delayed Release (Dr/Ec) 81 mg PO DAILY Qty: 30 0RF Continued zolpidem [Ambien] 5 mg tablet 5 mg PO PRN PRN (Reason: Sleep) simvastatin 40 mg tablet 40 mg PO DAILY isosorbide mononitrate 30 mg tablet extended release 24 hr 30 mg PO DAILY Qty: 30 5RF carvedilol 3.125 mg tablet 3.125 mg PO BID Qty: 60 1RF Prolia 60 mg/mL Syringe See Rx Instructions .ROUTE .COMPLEX Rx Instructions: 60 mg subcutaneously every 6 months clopidogrel 75 mg Tablet 75 mg PO DAILY Qty: 90 3RF Discontinued aspirin 325 mg tablet 325 mg PO DAILY amlodipine 5 mg tablet 5 mg PO DAILY Discharge Orders: Discharge Order (Routine); Ordered 12/01/24 Ordered By: Sb Atkinson Referrals: Fatmata Oliver MD [Primary Care Provider] - 2 weeks (Please call for an follow-up appointment within 4 to 7 days. Thank you! ) Discharge Diet: Cardiac Discharge Activity: Resume usual activity and Increase activity as tolerated Patient Instructions: Aspirin (By mouth), Coronary Artery Disease (DC), Syncope (DC), Hypertension (DC), Opioid Safety Activity Restrictions/Additional Instructions: Goal blood pressure less than 140/90 mmHg. Please check your blood pressure daily at home and maintain a blood pressure diary. Continue taking your dose of Coreg and Imdur as before. Do not take amlodipine. Please follow-up with a primary care provider within next 2 weeks with your blood pressure diary for further adjustment of antihypertensives. Discharge Attestations Time Spent in Discharge Care*: greater than 30 min Specific Discharge Activities: educating patient, educating and/or supporting family/caregiver, discussing with pcp/other providers, discussing with casi pisano gers/social workers/dc planners, documenting/other paperwork and evaluating patient/reviewing data Status at Discharge: Cognitive status at discharge: cognitively intact , Behavioral status at discharge: cooperative , Functional status at discharge: independent ambulation , Overall status at discharge: patient is back to baseline Quality Metrics Clinical Quality Measures [ No reported AMI, CVA or VTE this stay] Coding Level of Care Code 68712 Total time (in minutes) for Discharge: 60 Diagnoses Syncope and collapse R55 Uncontrolled hypertension I10 Abnormal cardiovascular stress test R94.39 Coronary artery disease involving [place] coronary artery of [place] heart without angina pectoris I25.10 Associated angina: without angina Coronary Disease-Associated Artery/Lesion type: [place] artery [place] vs. transplanted heart: white [place] heart Bilateral carotid artery stenosis I65.23 Laterality: bilateral S/P carotid endarterectomy Z98.890 Status post insertion of drug-eluting stent into left anterior descending (LAD) artery Z95.5 Old cardioembolic stroke without late effect Z86.73
[2024-12-01 11:37] VITALS: BP 120/74; PULSE 70; RESP 20; O2SAT 95
--- NOTE | 2024-12-01 15:56 | USCV_ITS ---
Erna Murphy Age: 79 Gender: F : 1945 Exam Date: 12/01/2024 07:38 Ordering Phys: Sb Atkinson MD Technologist: Demond Goldman [place]am Location[place] [facility] [place] Indication: positive stress test BP: 138 / 65 HR: 72 Rhythm: Sinus Technical Quality: Adequate MEASUREMENTS (Male / Female) Normal Values 2D ECHO LV Diastolic Diameter PLAX 4.5 cm 4.2 - 5.9 / 3.9 - 5.3 cm IVS Diastolic Thickness 1.7 cm 0.6 - 1.0 / 0.6 - 0.9 cm IVS Systolic Thickness 1.5 cm LVPW Diastolic Thickness 1.8 cm 0.6 - 1.0 / 0.6 - 0.9 cm LVPW Systolic Thickness 2.0 cm LVOT Diameter 2.2 cm LV Ejection Fraction 2D Teich 70.0 % LV Ejection Fraction MOD 4C 73.1 % LV Ejection Fraction MOD 2C 74.4 % LV Ejection Fraction 2C AL 75.0 % LA Diameter 3.8 cm RA Systolic Volume 4C AL 28.0 ml RA Systolic Volume 4C MOD 27.4 ml LA Sys Volume AL 39.5 cm cubed LA Sys Volume Index AL 23.7 cm cubed/m squared Aorta at Sinotubular Diameter 2.3 cm IVC Diameter 1.8 cm M-MODE LA Ao Ratio MM 1.3 AV Cusp Separation MM 1.4 cm DOPPLER AV Peak Velocity 131.0 cm/s LVOT Peak Velocity 132.0 cm/s AV Area Cont Eq vti 3.2 cm squared AV Area Cont Eq pk 3.7 cm squared MV Peak Velocity 130.0 cm/s MV Area PHT 4.0 cm squared Mitral E to A Ratio 0.8 TV Peak Velocity 209.5 cm/s TR Peak Velocity 297.0 cm/s TR Peak Gradient 35.3 mmHg TR Mean Velocity 261.0 cm/s TR Mean Gradient 27.8 mmHg TR Velocity Time Integral 92.8 cm PV Peak Velocity 129.0 cm/s RV Ejection Time 0.3 s FINDINGS Left Ventricle Left ventricle is normal size. LV systolic function is normal with EF of 55-60%. No regional wall motion abnormalities are seen. Grade 1 diastolic dysfunction. Right Ventricle Normal in size and function Right Atrium Normal in size Left Atrium Normal in size Mitral Valve Mild mitral annular calcification. Mild mitral regurgitation. Aortic Valve Aortic valve is thickened. No significant stenosis or regurgitation. Tricuspid Valve Mild tricuspid regurgitation. Pulmonary artery systolic pressure is normal. Pulmonic Valve Not well visualized Pericardium Small sized pericardial effusion. Aorta Normal in size IVC Appears to be normal CONCLUSIONS LV systolic function is normal with EF of 55-60%. Grade 1 diastolic dysfunction. Mild mitral regurgitation. Mild tricuspid regurgitation. Small sized pericardial effusion. Compared to prior echocardiogram from 2023, patient has a small sized pericardial effusion, otherwise no significant changes. Fer Lilly MD (Electronically Signed) Final Date: 01 December 2024 09:17 S
== END 2024-12-01 11:41 | disposition home or self-care (01) ==
LOC: ER 11:11 → CSU 13:50
PROVIDERS: Admitting Provider Student in an Organized Health Care Education/Training Program; Emergency Provider Family Medicine; PCP Family Medicine; Visit Provider Student in an Organized Health Care Education/Training Program
DX: R55 Syncope and collapse (principal); I12.9 Hypertensive chronic kidney disease with stage 1 through stage 4 chronic kidney disease, or unspecified chronic kidney disease; N18.9 Chronic kidney disease, unspecified; M81.0 Age-related osteoporosis without current pathological fracture; I25.118 Atherosclerotic heart disease of native coronary artery with other forms of angina pectoris; E87.5 Hyperkalemia; E78.5 Hyperlipidemia, unspecified; T46.5X6A Underdosing of other antihypertensive drugs, initial encounter; Z91.148 Patient's other noncompliance with medication regimen for other reason; R06.09 Other forms of dyspnea; I65.23 Occlusion and stenosis of bilateral carotid arteries; Z79.02 Long term (current) use of antithrombotics/antiplatelets; Z79.82 Long term (current) use of aspirin; Z79.899 Other long term (current) drug therapy; Z86.73 Personal history of transient ischemic attack (TIA), and cerebral infarction without residual deficits; Z87.891 Personal history of nicotine dependence; Z11.52 Encounter for screening for COVID-19; Z95.5 Presence of coronary angioplasty implant and graft; Z98.890 Other specified postprocedural states
CPT/HCPCS: 36415; 70450; 71045; 80053; 80061; 81003; 82607; 82746; 83036; 83540; 83550; 83735; 84100; 84145; 84484; 85025; 87637; 93005; 93306; 93880; 96361; 96372; 96374; 96376; 99285; G0378; J0360; J1644; J7030

== ENCOUNTER → 2024-12-17 10:00 | Outpatient (BNVA) | payer MEDICARE, OTHER, SELFPAY | PROVIDERS: PCP Family Medicine; Visit Provider Nurse Practitioner Family | DX: I25.10 Atherosclerotic heart disease of native coronary artery without angina pectoris (principal); R94.39 Abnormal result of other cardiovascular function study; I10 Essential (primary) hypertension | CPT/HCPCS: 99213 ==

== ENCOUNTER → 2024-12-30 14:12 | Outpatient (BNVA) | payer MEDICARE, OTHER, SELFPAY | PROVIDERS: PCP Family Medicine; Visit Provider Internal Medicine Cardiovascular Disease | DX: I12.9 Hypertensive chronic kidney disease with stage 1 through stage 4 chronic kidney disease, or unspecified chronic kidney disease (principal); N18.9 Chronic kidney disease, unspecified; R55 Syncope and collapse; Z87.891 Personal history of nicotine dependence | CPT/HCPCS: 99213 ==

== ENCOUNTER → 2025-01-15 13:13 | Outpatient (BNVA) | payer MEDICARE, OTHER, SELFPAY | PROVIDERS: PCP Family Medicine; Visit Provider Podiatrist Foot & Ankle Surgery | DX: I73.9 Peripheral vascular disease, unspecified (principal); L60.8 Other nail disorders; L60.3 Nail dystrophy | CPT/HCPCS: 11721 ==

== ENCOUNTER 2025-02-21 13:13 | Emergency (ER) | payer MEDICARE, OTHER, SELFPAY ==
[2025-02-21 13:25] LABS: Glucose Point of Care 93 mg/dL (70-110)
--- NOTE | 2025-02-21 13:25 | CTR_ITS ---
PROCEDURE INFORMATION: Exam: CT Head Without Contrast Exam date and time: 02/21/2025 1:28 PM Age: 79 years old Clinical indication: Stroke-like symptoms; Other: Slurred speech; Additional info: Symptoms of acute stroke TECHNIQUE: Imaging protocol: Computed tomography of the head without contrast. Radiation optimization: All CT scans at this facility use at least one of these dose optimization techniques: automated exposure control; mA and/or kV adjustment per patient size (includes targeted exams where dose is matched to clinical indication); or iterative reconstruction. Other technique: STROKE PROTOCOL was implemented. COMPARISON: CT head wo con* [id number] 11/30/2024 10:25 AM RADIATION DOSE METRICS: Total DLP (mGy-cm): 1007.04 FINDINGS: Brain: Chronic small cortical infarctions left superior perirolandic region. Chronic lacunar infarctions left caudate head. Chronic lacunar infarctions right anterior capsular white matter. Moderate hypoattenuating foci are noted in the central cerebral, posterior superior periatrial and anterior lateral ventricular periventricular white matter bilaterally. No intracranial hemorrhage. No mass or acute cortical infarction identified. Ventricles: Prominence of the ventricular system and subarachnoid spaces is consistent with the patient's age of 79 years. Paranasal sinuses: Visualized sinuses are unremarkable. No fluid levels. Mastoid air cells: Visualized mastoid air cells are well aerated. Orbital cavities: Left prior cataract surgery. Right prior cataract surgery with lens replacement. Bones: Unremarkable. No acute fracture. Soft tissues: Unremarkable. Vasculature: Atherosclerotic calcifications are present involving the carotid artery siphons and vertebral arteries bilaterally. CT/CT head thrombolytic [id number] IMPRESSION: 1. Chronic small cortical infarctions left superior perirolandic region. 2. Chronic lacunar infarctions left caudate head. 3. Chronic lacunar infarctions right anterior capsular white matter. 4. Age appropriate supratentorial and infratentorial atrophy. 5. Moderate chronic white matter microvascular ischemic disease. 6. No acute intracranial abnormality identified. ASSESSMENT: ASPECTS ([place] Stroke Program Early CT Score) is 10.
[2025-02-21 13:29] VITALS: BP 170/96; PULSE 80; RESP 17; TEMP 36.5; O2SAT 97
--- NOTE | 2025-02-21 13:29 | ED_ITS ---
HPI - Neuro Symptoms/Deficit 2 General: Chief Complaint: Neuro Symptoms/Deficit Stated Complaint: stroke like symptom Time Seen by Provider: 02/21/25 13:24 History of Present Illness: 79-year-old female presents emergency ro om with difficulty with word finding. This is her third episode in the last week. This was last a little longer began at around 11 AM. It is her only deficit at this time. The rest of her stroke exam is negative. She does attend with her family who verifies her history. She does take aspirin daily but has stopped the Plavix and simvastatin. Associated symptoms: Deny chest pain Related Data Home Medications ?Medication ?Instructions ?Recorded ?Confirmed denosumab 60 mg/mL subcutaneous See Rx Instructions .R oute .COMPLEX 10/13/21 02/21/25 syringe (Prolia) Previous Rx's ?Medication ?Instructions ?Recorded aspirin 81 mg tablet,delayed 81 mg PO DAILY #30 tabs 0 12/01/24 release amlodipine 2.5 mg tablet 2.5 mg PO BID #90 tabs 12/30 amlodipine 5 mg tablet 5 mg PO DAILY #30 tabs 02/21 atorvastatin 40 mg tablet (Lipitor) 40 mg PO DAILY #30 tabs 02/21/25 clopidogrel 75 mg tablet 75 mg PO DAILY #30 tabs 01/25 Allergies Allergy/AdvReac Type Severity Reaction Status Date / Time No Known Allergies Allergy Verified 01/15/25 13:22 Review of Systems 2 Const: Denies: fever(s) or chills Card: Denies: chest pain Resp: Denies: dyspnea GI: Denies: abdominal pain : Denies: dysuria, urinary frequency or urinary urgency Musc: Denies: neck pain or back pain Skin/Breast: Denies: rash PFSH ED 2 PFSH: Medical History Status post insertion of drug-eluting stent into left anterior descending (LAD) artery Bronchiolitis Anemia Chronic kidney disease Hypertriglyceridemia Acute hypotension Age related osteoporosis CVA (cerebral vascular accident) Carotid stenosis Hypertension Surgical History Status post colonoscopy (07/12/21) Hx of cataract surgery Status post right breast lumpectomy S/P carotid endarterectomy Family History Other Hypertension Social History Smoking and tobacco/nicotine status: former use of tobacco/nicotine NIH stroke score 2 NIHSS: Level Of Consciousness - 1a: 0 Level Of Consciousness Questions - 1b: Both Correct Level Of Consciousness Commands - 1c: Both Correct Best Gaze - 2: Normal Visual [place] - 3: No Visual Loss Facial Palsy - 4: N ormal Motor Arm Right - 5: No Drift Motor Arm Left - 5: No Drift Motor Leg Right - 6: No Drift Motor Leg Left - 6: No Drift Limb Ataxia - 7: A bsent Sensory - 8: Normal Best Language - 9: Mild/Moderate Aphasia D ysarthia - 10: Normal Extinction And Inattention - 11: 0 Score: Total Score: 1 Physical Exam 2 Const: COMMON NORMALS: no acute distress GENERAL APPEARANCE: cooperative and comfortable ORIENTATION/CONSCIOUSNESS: Yes awake, Yes oriented to person, Yes oriented to place and Yes oriented to time HENMT: COMMON NORMALS: normocephalic, atraumatic and hearing grossly normal bilaterally HEAD & SCALP: normocephalic and atraumatic Resp: COMMON NORMALS: normal respiratory effort, No retractions, No use of accessory muscles and clear to auscultation bilaterally AUSCULTATION: clear to auscultation bilaterally Cardio: COMMON NORMALS: regular rate, regular rhythm and No murmurs present (Cardio) RATE: regular rate RHYTHM: regular rhythm GI: COMMON NORMALS: Soft to palpation and No hepatosplenomegaly present A USCULTATION: Yes normoactive bowel sounds PALPATION: Yes Soft to palpation, No Tenderness to palpation present (GI), No Guarding due to palpation present (GI) and Yes No hepatosplenomegaly present Extremity: COMMON NORMALS: normal to inspection, capillary refill normal, no clubbing, cyanosis or edema, no calf tenderness and no pedal edema Neuro: SENSORIUM/ORIENTATION: Yes oriented to person, Yes oriented to place and Yes oriented to time Skin: COMMON NORMALS: no rashes or lesions noted GENERAL SKIN EXAM: no rashes or lesions noted Course 2 Vital Signs: Vital signs: Vital Signs Temperature 97.7 F 02/21/25 13:29 Pulse Rate 80 02/21/25 13:29 Respiratory Rate 17 02/21/25 13:29 Blood Pressure 170/96 02/21/25 13:29 Pulse Oximetry 97 02/21/25 13:29 Oxygen Delivery Me thod Room Air 02/21/25 13:29 MDM - Neuro Symptoms/Deficit Medical Decision Making CT head and CTA head and neck did not show any acute changes. Her only deficit is the word finding. This began to improve. She does not wish to stay we discussed possibility of observation however she prefer to go home. Reviewed the case with Dr. Woodruff. Will increase patient's amlodipine to 5 mg daily have her see restart clopidogrel changed to Lipitor and continue aspirin referred to the neurology in the short-term she is reestablishing with a physician locally to recheck her blood pressure for the next week just prior to discharge her blood pressure was elevated she was given labetalol and then ultimately discharged. Medical Records I reviewed the patient's medical records. Lab Data I reviewed the patient's lab results. 02/21/25 13:38 02/21/25 13:[address] 02/21/25 13:25 IMPRESSION: 1. Chronic small cortical infarctions left superior perirolandic region. 2. Chronic lacunar infarctions left caudate head. 3. Chronic lacunar infarctions right anterior capsular white matter. 4. Age appropriate supratentorial and infratentorial atrophy. 5. Moderate chronic white matter microvascular ischemic disease. 6. No acute intracranial abnormality identified. ASSESSMENT: ASPECTS ([place] Stroke Program Early CT Score) is 10. ADDENDUM: 02/21/25 1347 THIS REPORT CONTAINS FINDINGS THAT MAY BE CRITICAL TO PATIENT CARE. The findings were verbally communicated by me to DR. YONG JIANG via telephone conference at 1:47 PM CDT on 02/21/2025. The findings were acknowledged and understood. Laboratory Results WBC 9.05 10^3/uL (3.29-11.43) 02/21/25 13:38 RBC 4.93 10^6/uL (3.85-5.65) 02/21/25 13:38 Hgb 14.50 g/dL (11.27-16.99) 02/21/25 13:38 Hct 45.8 % (36-47) 02/21/25 13:38 MCV 92.9 fl (85-98) 02/21/25 13:38 MCH 29.4 pg (27-33) 02/21/25 13:38 MCHC 31.7 g/dL (30-55) 02/21/25 13:38 RDW 13.8 % (12.1-15.1) 02/21/25 13:38 Plt Count 315 10^3/cmm (157-399) 02/21/25 13:38 MPV 9.9 fL (7.4-10.4) 02/21/25 13:38 Neut % (Auto) 70.4 % 02/21/25 13:38 Lymph % (Auto) 19.1 % 02/21/25 13:38 [place] % (Auto) 8.1 % 02/21/25 13:38 Eos % (Auto) 1.7 % 02/21/25 13:38 Baso % (Auto) 0.4 % 02/21/25 13:38 Neut # (Auto) 6.37 10^3/uL (1.8-7.7) 02/21/25 13:38 Lymph # (Auto) 1.7 10^3/uL (0.8-4.8) 02/21/25 13:38 [place] # (Auto) 0.7 10^3/uL (0.2-0.9) 02/21/25 13:38 Eos # (Auto) 0.2 10^3/uL (0.0-0.8) 02/21/25 13:38 Baso # (Auto) 0.0 10^3/uL (0.0-0.1) 02/21/25 13:38 Nucleated RBC % (auto) 0 % 02/21/25 13:38 Nucleated RBCs # 0.0 /100WBC 02/21/25 13:38 PT 12.90 SECONDS (12.1-14.9) 02/21/25 13:38 INR 0.91 (0.8-1.2) 02/21/25 13:38 APTT 27.0 SECONDS (23.9-36.7) 02/21/25 13:38 Sodium 144 mmol/L (136-145) 02/21/25 13:38 Potassium 4.0 mmol/L (3.5-5.1) 02/21/25 13:38 Chloride 108 mmol/L (98-107) H 02/21/25 13:38 Carbon Dioxide 21 mmol/L (22-29) L 02/21/25 13:38 Anion Gap 19.0 (5-19) 02/21/25 13:38 BUN 17 mg/dL (8-23) 02/21/25 13:38 Creatinine 1.2 mg/dL (0.5-0.9) H 02/21/25 13:38 GFR Calculation Not Reportable 02/21/25 13:38 Glucose 89 mg/dL (65-115) 02/21/25 13:38 POC Glucose 93 mg/dL (70-110) 02/21/25 13:23 Calculated Osmolality 299 mOsm/kg (285-295) H 02/21/25 13:38 Calcium 8.9 mg/dL (8.5-10.5) 02/21/25 13:38 Total Bilirubin 0.2 mg/dL (0.15-1.2) 02/21/25 13:38 AST 15 U/L (0-32) 02/21/25 13:38 ALT 10 U/L (0-33) 02/21/25 13:38 Alkaline Phosphatase 63 U/L (35-105) 02/21/25 13:38 Total Protein 7.5 g/dL (6.6-8.7) 02/21/25 13:38 Albumin 4.3 g/dL (3.5-5.2) 02/21/25 13:38 Globulin 3.2 g/dL (1.3-4.6) 02/21/25 13:38 All radiology interpretation(s) finalized by discharge Discharge Plan Discharge Patient Disposition: Home Clinical Impression: Transient cerebral ischemia Condition: Stable Prescriptions: New clopidogrel 75 mg tablet 75 mg PO DAILY Qty: 30 0RF atorvastatin [Lipitor] 40 mg tablet 40 mg PO DAILY Qty: 30 0RF amlodipine 5 mg tablet 5 mg PO DAILY Qty: 30 0RF No Action amlodipine 2.5 mg tablet 2.5 mg PO BID Qty: 90 3RF Prolia 60 mg/mL Syringe See Rx Instructions .ROUTE .COMPLEX Rx Instructions: 60 mg subcutaneously every 6 months aspirin 81 mg Tablet,Delayed Release (Dr/Ec) 81 mg PO DAILY Qty: 30 0RF Discharge Orders: Discharge ED (Routine); Ordered 02/21/25 Ordered By: Yong Jiang Referrals: Fatmata Oliver MD [Primary Care Provider, Family Practice] Discharge Diet: Usual diet Discharge Activity: Increase activity as tolerated Patient Instructions: Opioid Safety, Pain Management Activity Restrictions/Additional Instructions: Thank you for choosing [facility] for your healthcare needs today. It is very important that you follow up as instructed or that you return to the Emergency Department should you have concerns or if your condition changes or worsens in any way. You were seen in the emergency room for difficulty with speech. Given your history and your presenting symptoms you are likely having a TIA. CT did not show any acute stroke. We had discussed possible admission you prefer to go home. I would recommend that you restart your Plavix 75 mg daily continue your aspirin 81 mg daily. Increase your amlodipine to 5 mg daily and start Lipitor 40 mg daily if you have any worsening of your symptoms return to the emergency room immediately. You should follow-up with your primary care doctor within the week. Also recommend that you follow-up with neurology for an MRI and further discussion of long-term preventative measures for TIA and stroke Print Language: [place] Islander Coding Level of Care Code ED Hides Inspector for Fatimah Reyez
[2025-02-21 13:48] LABS: Basophils % 0.4 %; Eosinophils # 0.2 10^3/uL (0.0-0.8); Eosinophils % 1.7 %; Hematocrit 45.8 % (36-47); Lymphocytes # 1.7 10^3/uL (0.8-4.8); Lymphocytes % 19.1 %; Mean Corpuscular HGB Conc 31.7 g/dL (30-55); Mean Corpuscular Hemoglobin 29.4 pg (27-33); Mean Corpuscular Volume 92.9 fl (85-98); Mean Platelet Volume 9.9 fL (7.4-10.4); Monocytes # 0.7 10^3/uL (0.2-0.9); Monocytes % 8.1 %; Neutrophils # 6.37 10^3/uL (1.8-7.7); Neutrophils % 70.4 %; Nucleated Red Blood Cells % 0 %; Platelet Count 315 10^3/cmm (157-399); Red Blood Count 4.93 10^6/uL (3.85-5.65); Red Cell Distribution Width 13.8 % (12.1-15.1); White Blood Count 9.05 10^3/uL (3.29-11.43)
--- NOTE | 2025-02-21 14:03 | ECG_ITS ---
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 Measurements Intervals [place] Rate: 78 P: 34 GA: 192 QRS: 106 QRSD: 129 T: 11 QT: 413 QTc: 473 Interpretive Statements SINUS RHYTHM RIGHT AXIS DEVIATION [QRS AXIS > 100] POSSIBLE RIGHT VENTRICULAR CONDUCTION DELAY [RSR (QR) IN V1/V2] MODERATE ST DEPRESSION [0.05+ mV ST DEPRESSION] Compared to ECG 11/30/2024 16:58:24 ST (T wave) deviation now present Electronically Signed On 02-25-2025 11:45:41 CDT by Fer Lilly M.D. [email or web address]
[2025-02-21 14:04] LABS: INR 0.91 (0.8-1.2)
[2025-02-21 14:09] LABS: Alanine Aminotransferase 10 U/L (0-33); Albumin Level 4.3 g/dL (3.5-5.2); Alkaline Phosphatase 63 U/L (35-105); Aspartate Amino Transferase 15 U/L (0-32); Blood Urea Nitrogen 17 mg/dL (8-23); Calcium 8.9 mg/dL (8.5-10.5); Carbon Dioxide 21 mmol/L (22-29); Chloride 108 mmol/L (98-107); Creatinine Clr Calc Pharmacy 32.5883; Globulin 3.2 g/dL (1.3-4.6); Glucose 89 mg/dL (65-115); Osmolality Calculated 299 mOsm/kg (285-295); Sodium 144 mmol/L (136-145); Total Bilirubin 0.2 mg/dL (0.15-1.2); Total Protein 7.5 g/dL (6.6-8.7)
--- NOTE | 2025-02-21 14:16 | PC.PHAR ---
Pt states she is only taking Amlodipine 2.5 bid, aspirin 81mg daily, and Prolia 60mg/ml every 6 months. Removed the following from pt list: Clopidogrel 75mg daily, Isosorbide mononitrate 30mg ER 30mg daily, Simvastatin 40mg daily, and Zolpidem 5mg at hs.
[2025-02-21] MEDS: labetalol 5 mg/mL SDV 20mL 10 MG IVP (15:00)
[2025-02-21 15:25] VITALS: BP 158/89; PULSE 75; O2SAT 95
== END 2025-02-21 15:29 | disposition home or self-care (01) ==
PROVIDERS: Emergency Provider Family Medicine; PCP Family Medicine
DX: G45.9 Transient cerebral ischemic attack, unspecified (principal); Z87.891 Personal history of nicotine dependence; Z86.73 Personal history of transient ischemic attack (TIA), and cerebral infarction without residual deficits; I12.9 Hypertensive chronic kidney disease with stage 1 through stage 4 chronic kidney disease, or unspecified chronic kidney disease; N18.9 Chronic kidney disease, unspecified
CPT/HCPCS: 36416; 70450; 80053; 82962; 85025; 85610; 85730; 93005; 96374; 99285; J3490

== ENCOUNTER → 2025-03-03 11:22 | Outpatient (BNVA) | payer MEDICARE, OTHER, SELFPAY | PROVIDERS: PCP Family Medicine; Visit Provider Family Medicine | DX: N39.41 Urge incontinence (principal) | CPT/HCPCS: 81003; 87086 ==

== ENCOUNTER 2025-03-31 13:19 | Oncology outpatient (recurring) (ONCR) | payer MEDICARE, OTHER, SELFPAY ==
[2025-03-31] MEDS: denosumab 60 mg SDV SUBCUT (14:01)
== END 2025-04-24 23:59 | disposition home or self-care (01) ==
LOC: ONCMED 13:20
PROVIDERS: PCP Family Medicine; Visit Provider Family Medicine
DX: M81.0 Age-related osteoporosis without current pathological fracture (principal); Z79.899 Other long term (current) drug therapy
CPT/HCPCS: 96372; J0897

== ENCOUNTER 2025-04-04 14:10 | Observation (INO) | payer MEDICARE, OTHER, SELFPAY ==
[2025-04-04] VITALS (16 sets, daily range): BP systolic 136–193; BP diastolic 74–128; PULSE 76–120; RESP 15–36; TEMP 36.3–37.2; O2SAT 94–100; BMI 23.3; BMI 22.8
--- OUTSIDE RECORDS SUMMARY | 2025-04-04 14:16 | XMS_ITS | Encounter Summary ---
Author Organization [facility] Address [address] [place] [address] Care Team Providers Care Optical Effects Camera Operator Name Role Phone Unavailable Primary Care Provider Unavailabl e Encounter Details Date Type Department Care Team (Latest Contact Info) Description 10/08/2002 Outpatient Historical [facility] Rheumatology- [facility] [address] [place] [id number] Jimi Muñiz MD NO ADDRESS ON FILE LOC PRIM OSTEOARTH-HAND (Primary Dx) Social History Tobacco Use Types Packs/Day Years Used Date Smoking Tobacco: Never Assessed Comments Unknown Sex and Gender Information Value Date Recorded Sex Assigned at Not on file 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
--- OUTSIDE RECORDS SUMMARY | 2025-04-04 14:16 | XMS_ITS | Clinical Summary ---
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
--- NOTE | 2025-04-04 14:45 | ED_ITS ---
HPI - General Adult General: Chief complaint: Airway/Esophagus Foreign Body Stated complaint: facial swelling Time Seen by Provider: 04/04/25 14:42 History of Present Illness: 79-year-old female presents emergency ro om with facial swelling difficulty swallowing at times. This been going on for the last 4 days. She got the last shot 5 days ago she started noticed the first difficulty with it the day after she got the shot in the last few hours it suddenly gotten significantly worse she has not been taking anything for it this past week. No chest pain no abdominal pain no vomiting. Associated symptoms: Deny chest pain, dyspnea or rash Related Data Home Medications ?Medication ?Instructions ?Recorded ?Confirmed denosumab 60 mg/mL subcutaneous See Rx Instructions .R oute .COMPLEX 10/13/21 03/03/25 syringe (Prolia) Previous Rx's ?Medication ?Instructions ?Recorded aspirin 81 mg tablet,delayed 81 mg PO DAILY #30 tabs 0 12/01/24 release amlodipine 2.5 mg tablet 2.5 mg PO BID #90 tabs 12/30 atorvastatin 40 mg tablet (Lipitor) 40 mg PO DAILY #90 tabs 03/03/25 clopidogrel 75 mg tablet 75 mg PO DAILY #90 tabs 06/19 oxybutynin chloride 10 mg 10 mg PO DAILY #30 tabs 02/23 04/18 tablet,extended release 24 hr Allergies Allergy/AdvReac Type Severity Reaction Status Date / Time No Known Allergies Allergy Verified 03/03/25 10:28 Review of Systems Const: Denies: fever(s) or chills Card: Denies: chest pain Resp: Denies: dyspnea GI: Denies: abdominal pain : Denies: dysuria, urinary frequency or urinary urgency Musc: Denies: neck pain or back pain Skin/Breast: Denies: rash PFSH ED PFSH: Medical History CKD stage 3b, GFR 30-44 ml/min Status post insertion of drug-eluting stent into left anterior descending (LAD) artery Bronchiolitis Anemia Chronic kidney disease Hypertriglyceridemia Acute hypotension Age related osteoporosis CVA (cerebral vascular accident) Carotid stenosis Left Hypertension Surgical History Status post colonoscopy (07/12/21) Hx of cataract surgery Status post right breast lumpectomy Left S/P carotid endarterectomy Left Family History Other Hypertension Social History Smoking and tobacco/nicotine status: former use of tobacco/nicotine Physical Exam Const: GENERAL APPEARANCE: cooperative ORIENTATION/CONSCIOUSNESS: Yes awake, Yes oriented to person, Yes oriented to place and Yes oriented to time HENMT: COMMON NORMALS: normocephalic, atraumatic and hearing grossly normal bilaterally HEAD & SCALP: normocephalic and atraumatic Resp: COMMON NORMALS: normal respiratory effort, No retractions, No use of accessory muscles and clear to auscultation bilaterally AUSCULTATION: clear to auscultation bilaterally Cardio: COMMON NORMALS: regular rate, regular rhythm and No murmurs present (Cardio) RATE: regular rate RHYTHM: regular rhythm GI: COMMON NORMALS: Soft to palpation and No hepatosplenomegaly present AUSCULTATION: Yes normoactive bowel sounds PALPATION: Yes Soft to palpation, No Tenderness to palpation present (GI), No Guarding due to palpation present (GI) and Yes No hepatosplenomegaly present Extremity: COMMON NORMALS: normal to inspection, capillary refill normal, no clubbing, cyanosis or edema, no calf tenderness and no pedal edema Neuro: SENSORIUM/ORIENTATION: Yes oriented to person, Yes oriented to place and Yes oriented to time Skin: COMMON NORMALS: no rashes or lesions noted GENERAL SKIN EXAM: no rashes or lesions noted Course Vital Signs: Vital signs: Vital Signs Temperature 98.1 F 04/04/25 14:13 Pulse Rate 91 04/04/25 14:13 Respiratory Rate 16 04/04/25 14:13 Blood Pressure 151/86 04/04/25 14:13 Pulse Oximetry 97 04/04/25 14:13 Oxygen Delivery Me thod Room Air 04/04/25 14:13 [facility] - General Adult Medical Records I reviewed the patient's medical records. Lab Data I reviewed the patient's lab results. Discharge Plan Discharge Condition: Stable Prescriptions: No Action amlodipine 2.5 mg tablet 2.5 mg PO BID Qty: 90 3RF atorvastatin [Lipitor] 40 mg tablet 40 mg PO DAILY Qty: 90 1RF clopidogrel 75 mg tablet 75 mg PO DAILY Qty: 90 1RF oxybutynin chloride 10 mg tablet extended release 24hr 10 mg PO DAILY Qty: 30 0RF Prolia 60 mg/mL Syringe See Rx Instructions .ROUTE .COMPLEX Rx Instructions: 60 mg subcutaneously every 6 months aspirin 81 mg Tablet,Delayed Release (Dr/Ec) 81 mg PO DAILY Qty: 30 0RF Referrals: Alba Fay DO [Primary Care Provider, Family Practice] Print Language: Hungarian Coding Level of Care Code ED Composite Assembler for Fatimah Reyez
--- NOTE | 2025-04-04 15:45 | XRR_ITS ---
PROCEDURE INFORMATION: Exam: XR Chest Exam date and time: 04/04/2025 4:01 PM Age: 79 years old Clinical indication: Cough and dyspnea; Additional info: Dyspnea/cough TECHNIQUE: Imaging protocol: Radiologic exam of the chest. Views: 1 view. COMPARISON: CR XR chest 1V portable [id number] 11/30/2024 10:12 AM FINDINGS: Tubes, catheters and devices: Overlying monitor leads. Lungs: Small amount of linear opacity lower left lung is unchanged with prior exam, suggesting small amount of linear scarring. No infiltrate/edema or consolidation. Pleural spaces: No pleural effusion. No pneumothorax. Heart/Mediastinum: Cardiac silhouette is mildly prominent, unchanged with prior exam. Vasculature: Arteriosclerosis thoracic aorta. Bones/joints: Visualized osseous structures show no acute abnormality. Slight thoracic scoliosis. XR/XR chest 1V portable [id number] IMPRESSION: Stable appearance of the chest with previous exam. No acute findings.
[2025-04-04] MEDS: methylPREDNISolone sod succ 125 mg/2 mL INJ IVP (15:49)
[2025-04-04] MEDS: diphenhydrAMINE 50 mg/mL SDV 1mL IVP (15:52)
--- NOTE | 2025-04-04 16:41 | ECG_ITS ---
[facility] Test Date: 2025-04-04 Pat Name: Erna Murphy Department: Room: ICU04 Gender: Female Terminal Supervisor: : 1945 Requested By: Yong Gagnon Order Number: [id number] Afia MD: Fer Lilly M.D. Measurements Intervals [place] Rate: 113 P: 15 ID: [id number] QRS: 103 QRSD: 128 T: -4 QT: 331 QTc: 455 Interpretive Statements SINUS TACHYCARDIA RIGHT AXIS DEVIATION [QRS AXIS > 100] RIGHT BUNDLE BRANCH BLOCK [120+ ms QRS DURATION, UPRIGHT V1, 40+ ms S IN I/aVL/V4/V5/V6] Compared to ECG 02/21/2025 14:03:54 Right bundle-branch block now present Sinus rhythm no longer present ST (T wave) deviation no longer present Electronically Signed On 04-08-2025 14:59:47 CDT by Fer Lilly M.D. [id number]
--- NOTE | 2025-04-04 17:32 | PM.HP ---
Providers/Chief Complaint Admitting Physician: Estrada House MD Primary Care Provider: Alba Fay DO Chief Complaint: facial swelling History of Present Illness Eran Murphy is a 79 year old female in basic good health but has been receiving Prolia for for 5 years for osteoporosis prescribed initially by Dr. Fatmata Oliver. She received a shot on Monday. She has had sore throat difficulty swallowing for about 2 days but this culminated with tongue and lip swelling today came in with angioedema and was seen in the emergency department by Dr. Jiang who administered diphenhydramine, famotidine and epinephrine. The patient states that her only other med changes were recently changed from simvastatin to rosuvastatin due to remote stroke by Dr. Jiang, amlodipine changed from 5 mg daily to 2.5 mg twice a day by Dr. Arrington and the Prolia shot which she has received in the past with absolutely no problem. She states that she asked the person administrating the shot last time what would happen if she stopped it and was told that there was risk of fracture. She states she got the impression that there was a rebound risk of increased fracture Review of Systems Narrative: General no fevers chills weight gain weight loss Cardiovascular history of a stent by Dr. Arrington no chest pain or palpitations Respiratory no shortness of breath cough wheezing she did have trouble swallowing no dysuria hematuria GI she has constipation at baseline had a recent episode of diarrhea but was prior to getting the shot no nausea vomiting Neuro she has a history of stroke following left carotid endarterectomy resulted right-sided weakness Malignancy history negative Hematologic negative for bleeding or bruising disorder Medications/Allergies Home Medications ?Medication ?Instructions ?Recorded ?Confirmed ?Last Taken ?Type denosumab 60 mg/mL subcutaneous See Rx Instructions .Route .COMPLEX 10/13/21 04/04/25 03/31/25 History syringe (Prolia) aspirin 81 mg tablet,delayed 81 mg PO DAILY #30 tabs 12/01/24 04/04/25 02/21/25 Rx release amlodipine 2.5 mg tablet 2.5 mg PO BID #90 tabs 12/30/24 04/04/25 04/04/25 Rx atorvastatin 40 mg tablet (Lipitor) 40 mg PO DAILY #90 tabs 03/03/25 04/04/25 04/04/25 Rx clopidogrel 75 mg tablet 75 mg PO DAILY #90 tabs 03/03/25 04/04/25 04/04/25 Rx oxybutynin chloride 10 mg 10 mg PO DAILY #30 tabs 03/11/25 04/04/25 04/04/25 Rx tablet,extended release 24 hr acetaminophen 500 mg tablet 500 mg PO Q6H PRN Fever Or Pain 04/04/25 04/04/25 Unknown History (Tylenol Extra Strength) Allergies Allergy/AdvReac Type Severity Reaction Status Date / Time No Known Allergies Allergy Verified 03/03/25 10:28 PFSH Acute PFSH: Medical History (Updated 04/04/25 @ 17:40 by Estrada House MD) Constipation CKD stage 3b, GFR 30-44 ml/min Status post insertion of drug-eluting stent into left anterior descending (LAD) artery Bronchiolitis Anemia Chronic kidney disease Hypertriglyceridemia Acute hypotension Age related osteoporosis CVA (cerebral vascular accident) Carotid stenosis Left Hypertension Surgical History Status post colonoscopy (07/12/21) Hx of cataract surgery Status post right breast lumpectomy Left S/P carotid endarterectomy Left Family History Other Hypertension Social History (Updated 04/04/25 @ 17:38 by Estrada House MD) Smoking and tobacco/nicotine status: former use of tobacco/nicotine Alcohol intake: never Substance/Drug Use: never Additional social history: 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 She wants full CODE STATUS as discussed with myself and her Matt present at bedside on 04/04/2025 with Estrada House MD Vitals/I&O/Wt Last Vital Signs Temp 98.1 F 04/04/25 14:13 Pulse 114 H 04/04/25 16:35 Resp 20 H 04/04/25 16:17 BP 160/90 04/04/25 16:28 Pulse Ox 98 04/04/25 16:28 O2 Del Method Room Air 04/04/25 16:35 04/04/25 04/04/25 04/04/25 06:59 14:59 22:59 Intake Total 0 / 0 Balance 0 / 0 Weight last 48 hrs Weight 58.5 kg Weight 59.874 kg Physical Exam Narrative: General well-developed well-nourished female in no acute cardiopulmonary stress Neck carotid upstrokes normal Oral pharynx Mallampati 1 there is minimal swelling of the tongue. Mouth is dry no stridor CV regular rate and rhythm Lungs clear to auscultation bilaterally Abdomen positive bowel sounds soft nontender Calves no tenderness cords pretrip edema Mentation alert and orient x 3 A&P Assessment and plan 1. Angioedema: Will monitor in the ICU overnight continue with Benadryl and famotidine. As needed nebulized epinephrine. 2. Female bladder prolapse: Chronic problem pessary did not work no recent dysuria hematuria. Will check a UA for possible infection. The association with angioedema would be unlikely however 3. Atherosclerotic heart disease of [place] coronary artery with other forms of angina pectoris: No chest pain stable continue with telemetry here with angioedema monitoring 4. Constipation: Start DSS and MiraLAX 5. 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
[2025-04-05] VITALS (17 sets, daily range): BP systolic 118–179; BP diastolic 69–134; PULSE 67–86; RESP 15–23; TEMP 36.4–36.7; O2SAT 93–97
--- NOTE | 2025-04-05 02:52 | PC.NURSE ---
Patient's IV came out, unable to place a new one after multiple attempts. Patient does not want anymore attempts made. Dr. Beckham notified that patient does not have IV access and will not be receiving IV Famotidine this am.
[2025-04-05] MEDS: polyethylene glycol 3350 Pkt 17 gm PO (09:26)
--- NOTE | 2025-04-05 10:46 | PM.DCS ---
Discharge Providers Date of Admission: 04/04/25 16:14 Date of Discharge: April 05, 2025 Attending Provider at Admission: Estrada House MD Attending Provider at Discharge: Estrada House MD Consults: None Primary Care Provider: Alba Fay DO Diagnoses at Discharge Discharge Diagnosis 1. Angioedema: Details from hospital stay: Resolved. If you find yourself itching in the if face lips or tongue take the famotidine twice a day and Benadryl every 6 hours 2. Female bladder prolapse: Details from hospital stay: Follow-up with your PCP and a pelvic floor surgeon 3. Atherosclerotic heart disease of [place] coronary artery with other forms of angina pectoris: Details from hospital stay: Resume your usual medications and talk with your PCP regarding clearance for surgery 4. Constipation: Details from hospital stay: Start docusate and MiraLAX prescriptions were sent to [facility] 5. 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 Fatmata Oliver. She received a shot on Monday. She has had sore throat difficulty swallowing for about 2 days but this culminated with tongue and lip swelling today came in with angioedema and was seen in the emergency department by Dr. Jiang who administered diphenhydramine, famotidine and epinephrine. The patient initially thought that she had no medication changes other than simvastatin to rosuvastatin in recent months but it turns out that she was started on oxybutynin for urinary incontinence this week and she has been taking it Monday Hospital Course Hospital Course Patient received epinephrine in the emergency department with rapid resolution of her tongue swelling but had tachycardia and hypertension. I continued only famotidine and Benadryl which was also given in the emergency department and she has had resolution of her facial swelling. She has no difficulty swallowing and is ready discharge She and her clarified with for me that she started oxybutynin earlier this week because pessary in 2 sizes increasing in size did not hold her cervix and uterus up as expected and they gave up on it. They discussed that they were sexually active until about 2 months ago when this became a big problem and that she also is unable to garden because squatting to do gardening because of the uterus and bladder to fall into the vagina. Although she has a history of coronary artery disease as well as a left sided CVA complicating a left carotid endarterectomy I do not think she has uncompensated vascular disease at this time. I encouraged her to seek surgical clearance with her primary care physician and surgical consultation with whoever is the best pelvic floor surgeon doing repairs for this problem in [place]. Additionally hysterectomy could potentially be appropriate but again that would be left to the specialist to determine best course of action as vagina could then still prolapse. Physical Exam Narrative: General well-developed well-nourished female in no acute cardiopulmonary stress CV regular rate and rhythm Lungs clear to auscultation bilaterally HEENT mouth looks still dry Mallampati 1 no edema of the tongue or lips. No drooling no stridor Discharge Data Studies Completed and Pending Completed Studies During Hospitalization Category Date Time Status XR chest 1V portable [id number] Stat Exams 04/04/25 15:45 Completed Radiology Impressions Chest X-Ray 04/04/25 15:45 IMPRESSION: Stable appearance of the chest with previous exam. No acute findings. Vitals Last Vital Signs Temp 97.5 F L 04/05/25 04:21 Pulse 73 04/05/25 09:15 Resp 18 04/05/25 09:15 BP 158/91 04/05/25 05:00 Pulse Ox 96 04/05/25 09:15 O2 Del Method Room Air 04/05/25 09:15 Discharge Plan Discharge Patient Disposition: Home Condition: Stable Prescriptions: New polyethylene glycol 3350 17 gram Powder In Packet 17 g PO DAILY Qty: 30 0RF docusate sodium 100 mg Capsule 100 mg PO BID Qty: 60 0RF famotidine 40 mg tablet 40 mg PO BID Qty: 10 0RF diphenhydramine HCl [Benadryl] 25 mg capsule 25 mg PO Q6H MDD 200 mg PRN (Reason: allergy symptoms) Qty: 20 0RF epinephrine [EpiPen] 0.3 mg/0.3 mL auto-injector 0.3 mg IM Q10M PRN (Reason: anaphylaxis) Qty: 1 0RF Continued amlodipine 2.5 mg tablet 2.5 mg PO BID Qty: 90 3RF atorvastatin [Lipitor] 40 mg tablet 40 mg PO DAILY Qty: 90 1RF clopidogrel 75 mg tablet 75 mg PO DAILY Qty: 90 1RF Prolia 60 mg/mL Syringe See Rx Instructions .ROUTE .COMPLEX Rx Instructions: 60 mg subcutaneously every 6 months aspirin 81 mg Tablet,Delayed Release (Dr/Ec) 81 mg PO DAILY Qty: 30 0RF acetaminophen [Tylenol Extra Strength] 500 mg Tablet 500 mg PO Q6H PRN (Reason: Fever Or Pain) Discontinued oxybutynin chloride 10 mg tablet extended release 24hr 10 mg PO DAILY Qty: 30 0RF Discharge Order = DC NOW: Discharge Order (Routine); Ordered 04/05/25 Ordered By: Estrada House Referrals: Alba Fay DO [Primary Care Provider, Family Practice] - 1 week Discharge Diet: Cardiac Discharge Activity: Resume usual activity Patient Instructions: Famotidine (By mouth) (Acid Controller, Acid Acquisition Editor, Pepcid AC, Pepcid), Diphenhydramine (By mouth) (Benadryl Allergy, Children's Benadryl..., Epinephrine (By injection) (Adrenaclick, Adrenalin, EpiPen,..., Polyethylene Glycol 3350 (By mouth) (Miralax, Healthylax..., Docusate (Into the rectum) (Docusol, DocuSol Kids, Enemeez Mini Enema), Opioid Safety, Patient Portal & Brannon Instructions Activity Restrictions/Additional Instructions: Stop oxybutynin which was started on Monday as that is the most likely cause of angioedema. Furthermore it is the only truly new medication to you within the last month It is known to have angioedema as a side effect You do not need to take any additional medications as I think this episode has stopped and if you remain off oxybutynin the angioedema should not recur. If you feel itching and tingling in your tongue and lips then please take Benadryl 25 mg up to 4 times a day and famotidine 40 mg twice a day. I sent those prescriptions to [facility] If your tongue and face swell and you feel like you may have difficulty breathing or swallowing call 911 and also take the epinephrine at that time I think the Prolia that you received on Monday is not the culprit. You have taken that already for for 5 years. There are however oral options that you could switch to for your osteoporosis as I understand you are concerned about the cost of the medication. I think that seeing a good gynecologic urologic surgeon regarding your pelvic floor instability referring to your uterus and bladder dropping down into the vagina and causing incontinence should be addressed by a surgeon. Per our discussion it is also negatively affecting your sex life and ability to do other activities that you enjoy such as gardening. Please discuss that with your primary care provider and follow-up with the best pelvic floor surgeon available. 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
--- NOTE | 2025-04-05 12:28 | PC.NURSE ---
Discharge: Patient discharged at 1150. ALert and oriented to person, place, time, and situation, Ivan is her ride. Patient does not have any IV to remove. Educated patient on new medications, and her upcoming pre-existing PCP appointment on the . Medications sent to [facility]. Nurse encouraged patient to have pharmacist show both her and her how to use the epipen and cautioned about accident self administration if he has to give it to her.
--- OUTSIDE RECORDS SUMMARY | 2025-04-05 13:43 | XMS_ITS | Clinical Summary ---
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
--- OUTSIDE RECORDS SUMMARY | 2025-04-05 13:44 | XMS_ITS | Encounter Summary ---
Author Organization [facility] Address [address] [place] [address] Care Team Providers Care Registry Nurse Name Role Phone Unavailable Primary Care Provider Unavailabl e Encounter Details Date Type Department Care Team (Latest Contact Info) Description 10/08/2002 Outpatient Historical 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
== END 2025-04-05 11:50 | disposition home or self-care (01) ==
LOC: ER 14:56 → ICU 04-05 00:35
PROVIDERS: Admitting Provider Internal Medicine; Emergency Provider Family Medicine; PCP Family Medicine; Visit Provider Internal Medicine
DX: T78.3XXA Angioneurotic edema, initial encounter (principal); Z88.7 Allergy status to serum and vaccine; N81.10 Cystocele, unspecified; I25.118 Atherosclerotic heart disease of native coronary artery with other forms of angina pectoris; K59.00 Constipation, unspecified; Z86.73 Personal history of transient ischemic attack (TIA), and cerebral infarction without residual deficits; Z79.82 Long term (current) use of aspirin; R00.0 Tachycardia, unspecified; I12.9 Hypertensive chronic kidney disease with stage 1 through stage 4 chronic kidney disease, or unspecified chronic kidney disease; N18.32 Chronic kidney disease, stage 3b; D64.9 Anemia, unspecified; I95.89 Other hypotension; Z87.891 Personal history of nicotine dependence
CPT/HCPCS: 36415; 71045; 93005; 96372; 96374; 96375; 96376; 99285; G0378; J0169; J1200; J2919; J3490; J9999

== ENCOUNTER → 2025-04-22 13:53 | Outpatient (BNVA) | payer MEDICARE, OTHER, SELFPAY | PROVIDERS: PCP Family Medicine; Visit Provider Podiatrist Foot & Ankle Surgery | DX: I73.9 Peripheral vascular disease, unspecified (principal); L60.3 Nail dystrophy; L84 Corns and callosities; L60.8 Other nail disorders | CPT/HCPCS: 11055; 11721 ==

== ENCOUNTER → 2025-05-29 10:35 | Outpatient (BNVA) | payer MEDICARE, OTHER, SELFPAY | PROVIDERS: PCP Family Medicine; Visit Provider Family Medicine | DX: I10 Essential (primary) hypertension (principal); Z13.6 Encounter for screening for cardiovascular disorders | CPT/HCPCS: 80053; 84443; 85025 ==

== ENCOUNTER → 2025-07-22 13:41 | Outpatient (BNVA) | payer MEDICARE, OTHER, SELFPAY | PROVIDERS: PCP Family Medicine; Visit Provider Podiatrist Foot & Ankle Surgery | DX: I73.9 Peripheral vascular disease, unspecified (principal); L60.3 Nail dystrophy; L84 Corns and callosities | CPT/HCPCS: 11055; 11721 ==

== ENCOUNTER → 2025-08-11 14:06 | Outpatient (BNVA) | payer MEDICARE, OTHER, SELFPAY | PROVIDERS: PCP Family Medicine; Visit Provider Family Medicine | DX: R79.89 Other specified abnormal findings of blood chemistry (principal) | CPT/HCPCS: 82607 ==

== ENCOUNTER → 2025-09-04 13:37 | Outpatient (BNVA) | payer MEDICARE, OTHER, SELFPAY | PROVIDERS: PCP Family Medicine; Visit Provider Internal Medicine Cardiovascular Disease | DX: I25.10 Atherosclerotic heart disease of native coronary artery without angina pectoris (principal); I10 Essential (primary) hypertension; Z86.73 Personal history of transient ischemic attack (TIA), and cerebral infarction without residual deficits; Z79.02 Long term (current) use of antithrombotics/antiplatelets; Z79.82 Long term (current) use of aspirin; Z87.891 Personal history of nicotine dependence | CPT/HCPCS: 99214 ==